=== PATIENT | male | born 1950 ===

== ENCOUNTER 2017-07-08 16:52 | Emergency (ER) | payer MEDICARE ==
[2017-07-08 17:34] VITALS: BMI 25.3
--- NOTE | 2017-07-08 17:34 | ED PDOC ---
Arrival/HPI - General Chief Complaint: ENT Problem Time Seen by Provider: 07/08/17 17:31 Historian: Patient - History of Present Illness Narrative History of Present Illness (Text): 07/08/17 17:31 This 66 yo male presents to this ED c/o nosebleed since yesterday. Patient stated nosebleed started suddenly. Patient was able to control nose bleeding by placing paper towel into right nostril last night. Patient noted nosebleed return prior coming to ED. Patient denies taking blood thinner. Denies other complains. Time/Duration: Other (see hpi) Context: Home Past Medical History - Provider Review Nursing Documentation Reviewed: Yes - Infectious Disease Hx of Infectious Diseases: None - Tetanus Immunization Tetanus Immunization: Unknown - Cardiac Hx Cardiac Disorders: No Hx Hypertension: Yes - Pulmonary Hx Respiratory Disorders: No - Neurological Hx Neurological Disorder: No - HEENT Hx HEENT Disorder: No - Renal Hx Renal Disorder: No - Endocrine/Metabolic Hx Endocrine Disorders: No - Hematological/Oncological Hx Blood Disorders: Yes Hx Cancer: Yes (Rt. Lung??) - Integumentary Hx Dermatological Disorder: No - Musculoskeletal/Rheumatological Hx Musculoskeletal Disorders: No - Gastrointestinal Hx Hemorrhoids: Yes - Genitourinary/Gynecological Hx Genitourinary Disorders: No - Psychiatric Hx Depression: Yes Hx Substance Use: No - Surgical History Hx Orthopedic Surgery: Yes (right leg) Other/Comment: hemorrhoids - Anesthesia Hx Anesthesia: Yes Hx Anesthesia Reactions: No Hx Malignant Hyperthermia: No - Suicidal Assessment Feels Threatened In Home Enviroment: No Family/Social History - Physician Review Nursing Documentation Reviewed: Yes Family/Social History: Other (noncontributory) Smoking Status: Heavy Smoker > 10 Cigarettes Daily Hx Alcohol Use: Yes Amount per day: 6 (12oz [place]-Lite) Hx Substance Use: No Hx Substance Use Treatment: No Allergies/Home Meds Allergies/Adverse Reactions: Allergies No Known Allergies Allergy (Verified 07/08/17 17:24) Home Medications: Home Meds Medication Instructions Recorded Confirmed Albuterol HFA [Ventolin HFA 90 1 puff IH 05/12/16 mcg/actuation (8 g)] Carboplatin 150 mg IV 05/12/16 Lisinopril [Zestril] 10 mg PO 05/12/16 Meclizine [Antivert] 25 mg PO Q6 05/12/16 05/12/16 PEMEtrexed [Alimta] 500 mg IV 05/12/16 Palonosetron [Aloxi] 0.25 mg IV 05/12/16 Pegfilgrastim [Neulasta] 6 mg SC 05/12/16 Tamsulosin [Flomax] 0.4 mg PO DAILY 05/12/16 05/12/16 amLODIPine [Norvasc] 5 mg PO 05/12/16 Review of Systems - Review of Systems Constitutional: Normal. absent: Fatigue, Weight Change, Fevers Eyes: Normal ENT: Epistaxis Respiratory: Normal Cardiovascular: Normal Gastrointestinal: Normal Genitourinary Male: Normal Musculoskeletal: Normal Skin: Normal Neurological: Normal Endocrine: Normal Hemo/Lymphatic: Normal Psychiatric: Normal Physical Exam Vital Signs Temp Pulse Resp BP Pulse Ox 07/08/17 18:59 97.9 F 80 19 141/70 99 Temperature: Afebrile Blood Pressure: Normal Pulse: Regular Respiratory Rate: Normal Appearance: Positive for: Well-Appearing, Non-Toxic, Comfortable Pain Distress: None Mental Status: Positive for: Alert and Oriented X 3 - Systems Exam Head: Present: Atraumatic, Normocephalic Pupils: Present: PERRL Extroacular Muscles: Present: EOMI Ears: Present: Normal, NORMAL TM Mouth: Present: Moist Mucous Membranes Pharnyx: No: ERYTHEMA, EXUDATE, TONSILS ENLARGED Nose (External): Present: Atraumatic Nose (Internal): Present: No Active Bleeding, Other ((+) small blood clot noted right nostril) Neck: Present: Normal Range of Motion Respiratory/Chest: Present: Clear to Auscultation, Good Air Exchange. No: Respiratory Distress, Accessory Muscle Use, Wheezes, Retracting, Rhonchi Cardiovascular: Present: Regular Rate and Rhythm, Normal S1, S2. No: Murmurs Upper Extremity: Present: Normal Inspection, Normal ROM Lower Extremity: Present: Normal Inspection, Normal ROM Neurological: Present: GCS=15, CN II-XII Intact, Speech Normal, Motor Func Grossly Intact, Normal Sensory Function, Normal Cerebellar Funct, Gait Normal Skin: Present: Warm, Dry, Normal Color. No: Rashes Psychiatric: Present: Alert, Oriented x 3, Normal Insight, Normal Concentration Medical Decision Making ED Course and Treatment: 07/08/17 18:15 PROCEDURE: EPISTAXIS MANAGEMENT ~ Performed by the emergency provider Consent: Informed consent was obtained after discussion of the risks, benefits, and alternatives to the procedure. Timeout: A timeout to verify the correct patient, procedure, and site was performed immediately prior to the procedure. Indication: Nasal bleeding control Location: right naris Medication: none Bleeding Source: ANTERIOR Cautery: yes Packing: no Post-procedure: Good hemostasis. The patient was observed following procedure and no repeat episode of bleeding was noted. Patient tolerated the procedure well with no immediate complications. 07/08/17 19:01 Patient stated he feels better. Epistaxis has improved. Patient stated he needs to go home, and he would like to be discharge home soon. He agrees to return to ED id epistaxis returns. I recommended patient to use a humidifier in the house. To apply Vaseline ointment on both nostrils daily. To avoid blowing his nose. Re-evaluation Time: 19:03 Reassessment Condition: Re-examined, Improved - Medication Orders Current Medication Orders: Discontinued Medications Silver Nitrate (Silver Nitrate Topical Stick) 4 swa TOP ONCE ONE Stop: 07/08/17 17:37 Last Admin: 07/08/17 19:00 Dose: 4 swa Comments: Given by Teresa MARCANO. Disposition/Present on Arrival - Present on Arrival Any Indicators Present on Arrival: No History of DVT/PE: No History of Uncontrolled Diabetes: No Urinary Catheter: No History of Decub. Ulcer: No History Surgical Site Infection Following: None - Disposition Have Diagnosis and Disposition been Completed?: Yes Diagnosis: Epistaxis Disposition: HOME/ ROUTINE Disposition Time: 19:03 Patient Plan: Discharge Condition: GOOD Discharge Instructions (ExitCare): Nosebleeds (DC) Additional Instructions: Call doctor of nose in 1-2 days for revaluation. Return to emergency if symptoms reappears. Do not finger clean your nose. Do not blow your nose. Apply Vaseline on each nostrils daily. Use humidifier at home. Referrals: Bettina Marrero MD [Primary Care Provider] - Follow up with primary Tito Dale DO [Staff Provider] - Follow up with primary Forms: yavalu (Danish)
[2017-07-08] MEDS ORDERED: Silver Nitrate Topical - Stick TOP ONE (17:36)
[2017-07-08 19:00] VITALS: BP 141/70; PULSE 80; TEMP 97.9; O2SAT 99
[2017-07-08 19:08] VITALS: RESP 18
== END 2017-07-08 19:08 | disposition home or self-care (01) ==
LOC: ED 16:52
DX: R04.0 Epistaxis (principal)

== ENCOUNTER 2017-07-21 16:54 | Inpatient (IN) | payer MEDICARE, OTHER ==
--- NOTE | 2017-07-21 17:13 | ED PDOC ---
Arrival/HPI - General Chief Complaint: Dizziness/Lightheaded Time Seen by Provider: 07/21/17 16:55 Historian: Patient - History of Present Illness Narrative History of Present Illness (Text): 07/21/17 17:10 66yo male with PMHx of hypertension, depression, BPH, PMHx who present with complaint of "feeling off" with tremors on his hands since this morning. He admits to drinking alcohol daily. States he drank last night and this morning. He denies chest pain, focal weakness, nausea, vomiting, headache, visual changes , any other complaint, States he have never had this symptoms in the past. Past Medical History - Provider Review Nursing Documentation Reviewed: Yes - Infectious Disease Hx of Infectious Diseases: None - Tetanus Immunization Tetanus Immunization: Unknown - Cardiac Hx Cardiac Disorders: No Hx Hypertension: Yes - Pulmonary Hx Respiratory Disorders: No - Neurological Hx Neurological Disorder: No - HEENT Hx HEENT Disorder: No - Renal Hx Renal Disorder: No - Endocrine/Metabolic Hx Endocrine Disorders: No - Hematological/Oncological Hx Blood Disorders: Yes Hx Cancer: Yes (Rt. Lung??) - Integumentary Hx Dermatological Disorder: No - Musculoskeletal/Rheumatological Hx Musculoskeletal Disorders: No - Gastrointestinal Hx Hemorrhoids: Yes - Genitourinary/Gynecological Hx Genitourinary Disorders: No - Psychiatric Hx Depression: Yes Hx Substance Use: No - Surgical History Hx Orthopedic Surgery: Yes (right leg) Other/Comment: hemorrhoids - Anesthesia Hx Anesthesia: Yes Hx Anesthesia Reactions: No Hx Malignant Hyperthermia: No - Suicidal Assessment Feels Threatened In Home Enviroment: No Family/Social History - Physician Review Nursing Documentation Reviewed: Yes Family/Social History: Unknown Family HX Smoking Status: Heavy Smoker > 10 Cigarettes Daily Hx Alcohol Use: Yes Amount per day: 6 (12oz [place]-Lite) Hx Substance Use: No Hx Substance Use Treatment: No Allergies/Home Meds Allergies/Adverse Reactions: Allergies No Known Allergies Allergy (Verified 07/21/17 17:04) Home Medications: Home Meds Medication Instructions Recorded Confirmed Albuterol HFA [Ventolin HFA 90 1 puff IH 05/12/16 mcg/actuation (8 g)] Carboplatin 150 mg IV 05/12/16 Lisinopril [Zestril] 10 mg PO 05/12/16 Meclizine [Antivert] 25 mg PO Q6 05/12/16 05/12/16 PEMEtrexed [Alimta] 500 mg IV 05/12/16 Palonosetron [Aloxi] 0.25 mg IV 05/12/16 Pegfilgrastim [Neulasta] 6 mg SC 05/12/16 Tamsulosin [Flomax] 0.4 mg PO DAILY 05/12/16 05/12/16 amLODIPine [Norvasc] 5 mg PO 05/12/16 Review of Systems - Physician Review All systems were reviewed & negative as marked: Yes - Review of Systems Constitutional: Normal Eyes: Normal ENT: Normal Respiratory: Normal Cardiovascular: Normal Gastrointestinal: Normal Genitourinary Male: Normal Musculoskeletal: Normal Skin: Normal Neurological: Dizziness (Tremors of b/l hands), Other (Tremors of b/l hands) Endocrine: Normal Hemo/Lymphatic: Normal Psychiatric: Normal Physical Exam Vital Signs Reviewed: Yes Vital Signs Temp Pulse Resp BP Pulse Ox 07/21/17 17:10 98.0 F 76 18 138/85 98 Temperature: Afebrile Blood Pressure: Normal Pulse: Regular Respiratory Rate: Normal Appearance: Positive for: Well-Appearing, Non-Toxic, Comfortable, Other ( Tremors of b/l hands) Pain Distress: None Mental Status: Positive for: Alert and Oriented X 3 - Systems Exam Head: Present: Atraumatic, Normocephalic Pupils: Present: PERRL Extroacular Muscles: Present: EOMI Conjunctiva: Present: Normal Mouth: Present: Moist Mucous Membranes Neck: Present: Normal Range of Motion Respiratory/Chest: Present: Clear to Auscultation, Good Air Exchange. No: Respiratory Distress, Accessory Muscle Use Cardiovascular: Present: Regular Rate and Rhythm, Normal S1, S2. No: Murmurs Abdomen: No: Tenderness, Distention, Peritoneal Signs Back: Present: Normal Inspection Upper Extremity: Present: Normal Inspection. No: Cyanosis, Edema Lower Extremity: Present: Normal Inspection. No: Edema Neurological: Present: GCS=15, CN II-XII Intact, Speech Normal, Motor Func Grossly Intact, Normal Sensory Function, Normal Cerebellar Funct, Norm Deep Tendon Reflexes, Gait Normal, Memory Normal, Normal 2Pt Descrimination, Other ( No focal neurological deficit) Skin: Present: Warm, Dry, Normal Color. No: Rashes Psychiatric: Present: Alert, Oriented x 3, Normal Insight, Normal Concentration Medical Decision Making ED Course and Treatment: 07/21/17 17:56 Pt in ED B/L tremors and not feeling well. Labs EKG Head CT Will reassess pt EKG NSR @73bpm 07/21/17 19:46 PT was neurological intact in ED. AAO x3 in ED. Lab was unremarkable CXR ???Apple core lesion on RLL Head CT IMPRESSION: Multiple cystic and hyperdense masses identified in both hemispheres all associated with vasogenic edema highly suspicious for both bland and hemorrhagic metastasis. Additional cystic mass left temporal lobe measuring 2.2 x 2.4 cm also suspicious for neoplasm. These represent new findings compared to the prior study. Case was DW Dr. Hunt, covering Dr. Baldwin. He recommends Decadron 4mg Q6hr , Brain MRI with contrast and elevation of bed head to 30degree. Case was ORIN Mendez and she accepted pt for admission. Request Dr. Cabrera for consult Case was ORIN Cabrera and he recommends Decadron 4mg q6 and Keppra 500mg BID Keppra 500mg, Decadron 10mg was given in ED and bed was elevated to 30degree. - Lab Interpretations Lab Results: 07/21/17 17:26 07/21/17 17:26 Lab Results 07/21/17 17:26: Acetaminophen < 10.0 L 07/21/17 17:26: Alcohol, Quantitative 106 H 07/21/17 17:26: Sodium 139, Potassium 3.9, Chloride 101, Carbon Dioxide 25, Anion Gap 16, BUN 9, Creatinine 1.1, Est GFR ( Amer) > 60, Est GFR (Non- Af Amer) > 60, Random Glucose 99, Calcium 8.5, Phosphorus 3.4, Magnesium 2.0, Total Bilirubin 0.2, AST 44, ALT 22, Alkaline Phosphatase 106, Lactate Dehydrogenase 468, Total Creatine Kinase 55, Troponin I < 0.01, Total Protein 7.0, Albumin 3.8, Globulin 3.3, Albumin/Globulin Ratio 1.1 07/21/17 17:26: PT 10.9, INR 0.96, APTT 29.3 07/21/17 17:26: WBC 6.8 D, RBC 3.19 L, Hgb 10.7 L, Hct 31.4 L, MCV 98.4, MCH 33.5, MCHC 34.1, RDW 12.2, Plt Count 243, MPV 8.0, Gran % 55.3, Lymph % (Auto) 32.7, [place] % (Auto) 7.6 H, Eos % (Auto) 3.7, Baso % (Auto) 0.7, Gran # 3.73, Lymph # (Auto) 2.2, [place] # (Auto) 0.5, Eos # (Auto) 0.3, Baso # (Auto) 0.05 - RAD Interpretation Radiology Orders: 07/21/17 17:07 HEAD W/O CONTRAST [CT] Stat 07/21/17 19:15 CHEST PORTABLE [RAD] Stat - Medication Orders Current Medication Orders: Discontinued Medications Dexamethasone (Decadron Inj) 10 mg IVP STAT STA Stop: 07/21/17 18:57 Levetiracetam (Keppra 500mg Ivpb) 500 mg in 100 mls @ 400 mls/hr IVPB STAT STA Stop: 07/21/17 19:42 Disposition/Present on Arrival - Present on Arrival Any Indicators Present on Arrival: No History of DVT/PE: No History of Uncontrolled Diabetes: No Urinary Catheter: No History of Decub. Ulcer: No History Surgical Site Infection Following: None - Disposition Have Diagnosis and Disposition been Completed?: Yes Diagnosis: Brain neoplasm Disposition: HOSPITALIZED Disposition Time: 19:05 Patient Plan: Admission Patient Problems: Current Active Problems Problem Status Onset Brain neoplasm Acute Condition: FAIR
[2017-07-21 17:16] VITALS: BMI 24.4
[2017-07-21 17:42] LABS: BASO # 0.05 K/mm3 (0.0-2.0); BASO % 0.7 % (0.0-3.0); EOS # 0.3 (0.0-0.7); EOS % 3.7 % (1.5-5.0); GRAN # 3.73 (1.4-6.5); GRAN % 55.3 % (50.0-68.0); HEMOGLOBIN 10.7 g/dL (14.0-18.0); LYMPH # 2.2 (1.2-3.4); LYMPH % 32.7 % (22.0-35.0); MEAN CELL VOLUME 98.4 fl (80.0-105.0); MEAN CORPUSCULAR HEMOGLOBIN 33.5 pg (25.0-35.0); MEAN CORPUSCULAR HGB CONC 34.1 g/dl (31.0-37.0); MONO # 0.5 (0.1-0.6); MONO % 7.6 % (1.0-6.0); RBC 3.19 10^6/uL (3.5-6.1); RED CELL DISTRIBUTION WIDTH 12.2 % (11.5-14.5); WHITE BLOOD COUNT 6.8 10^3/ul (4.5-11.0)
[2017-07-21 17:50] LABS: INR 0.96 (0.93-1.08); PARTIAL THROMBOPLASTIN TIME 29.3 Seconds (25.1-36.5); PROTHROMBIN TIME 10.9 SECONDS (9.4-12.5)
[2017-07-21 17:57] LABS: ALB/GLOB RATIO 1.1 (1.1-1.8); ALBUMIN 3.8 g/dL (3.0-4.8); ALT/SGPT 22 U/L (7-56); AST/SGOT 44 U/L (17-59); BLOOD UREA NITROGEN 9 mg/dL (7-21); CALCIUM 8.5 mg/dL (8.4-10.5); GFR AFRICAN-AMERICAN > 60; GFR NON-AFRICAN AMERICAN > 60
[2017-07-21 18:08] LABS: TROPONIN I < 0.01 ng/mL
--- NOTE | 2017-07-21 18:27 | CT ---
PROCEDURE: CT HEAD WITHOUT CONTRAST. HISTORY: Tremors COMPARISON: 05/12/2016 TECHNIQUE: Axial computed tomography images were obtained through the head/brain without intravenous contrast. Coronal and sagittal reconstructed images. Radiation dose: Total exam DLP = 1006.63 mGy-cm. This CT exam was performed using one or more of the following dose reduction techniques: Automated exposure control, adjustment of the mA and/or kV according to patient size, and/or use of iterative reconstruction technique. FINDINGS: HEMORRHAGE: No intracranial hemorrhage. BRAIN: Cystic mass or cystic a typical encephalomalacia change left temporal lobe. This is a new finding compared to the prior study. This appears anterior and subjacent to the craniotomy defect. Dense mass posterior left parieto-occipital region 7 mm with surrounding vasogenic edema likely hemorrhagic metastasis. Additional hyperdense findings adjacent to the left quadrigeminal plate cistern, left posterior parietal region and right tentorium likely hemorrhagic metastasis. None measure larger than 7 mm. Cystic mass high posterior right parietal region with associated vasogenic edema. The mass measures 2.7 cm. No atrophy or chronic microvascular ischemic changes. VENTRICLES: Hyperdense mass attached to the surface of the right lateral ventricle measuring 5 mm in all likelihood metastatic disease. CALVARIUM: Stable post craniotomy findings. PARANASAL SINUSES: Unremarkable as visualized. No significant inflammatory changes. MASTOID AIR CELLS: Unremarkable as visualized. No inflammatory changes. OTHER FINDINGS: None. IMPRESSION: Multiple cystic and hyperdense masses identified in both hemispheres all associated with vasogenic edema highly suspicious for both bland and hemorrhagic metastasis. Additional cystic mass left temporal lobe measuring 2.2 x 2.4 cm also suspicious for neoplasm. These represent new findings compared to the prior study. Communication of results: This study was completed at 18:02. I conveyed the information to the physician in senior office assistant involved in the care and management of this individual at 18:24
[2017-07-21] MEDS ORDERED: levETIRAcetam 500mg IVPB 500 MG/100 ML BAG IVPB STA (19:28)
[2017-07-21] MEDS ORDERED: Nitroglycerin 2% Ointment Foilpak UD TOP PRN (19:55)
[2017-07-21 19:57] LABS: URINE BILIRUBIN NEGATIVE (NEGATIVE); URINE BLOOD NEGATIVE (NEGATIVE); URINE GLUCOSE (UA) NEGATIVE (NEGATIVE); URINE LEUKOCYTE ESTERASE NEGATIVE Leu/uL (NEGATIVE); URINE PROTEIN NEGATIVE mg/dL (<30 mg/dL); URINE UROBILINOGEN 0.2 E.U./dL (<1 E.U./dL)
[2017-07-21 20:02] LABS: URINE APPEARANCE CLEAR (CLEAR)
[2017-07-21 20:17] LABS: BARBITURATES, UR POSITIVE (NEGATIVE); BENZODIAZEPINES, UR NEGATIVE (NEGATIVE); OPIATES, UR NEGATIVE (NEGATIVE); PHENCYCLIDINE, UR NEGATIVE (NEGATIVE)
[2017-07-21] MEDS: Dexamethasone 4 mg/1 ml IVP SCH (20:31)
--- NOTE | 2017-07-21 21:37 | CARD ---
APPROVED REPORT EKG Measurement Heart [id number] MS 170P-22 [id number] <Conclusion> Normal sinus rhythm with sinus arrhythmia Normal ECG
[2017-07-21] MEDS ORDERED: levETIRAcetam 500 MG in Sodium Chloride 0.9% 100 ML IV SCH (22:00)
[2017-07-22] MEDS: levETIRAcetam 500mg IVPB 500 MG/100 ML BAG IVPB SCH ×3 (00:02→21:13)
[2017-07-22] MEDS: Dexamethasone 4 mg/1 ml IVP SCH ×4 (02:13→21:13)
[2017-07-22 06:37] LABS: HEMOGLOBIN 10.5 g/dL (14.0-18.0); MEAN CELL VOLUME 97.5 fl (80.0-105.0); MEAN CORPUSCULAR HGB CONC 33.9 g/dl (31.0-37.0); MEAN PLATELET VOLUME 8.3 fl (7.0-11.0); RBC 3.18 10^6/uL (3.5-6.1); RED CELL DISTRIBUTION WIDTH 12.2 % (11.5-14.5); WHITE BLOOD COUNT 5.5 10^3/ul (4.5-11.0)
--- NOTE | 2017-07-22 09:04 | CP.PCM.PN ---
Subjective - Date & Time of Evaluation Date of Evaluation: 07/22/17 Time of Evaluation: 09:01 - Subjective Subjective: multiple lesions in brain Had pior craniotomy Told by ER that he had hx of lung CA but not documented anduncertain it is true Needs MRI of brain and should have metastatic workup please contact us when above studies are complete Objective - Vital Signs/Intake and Output Vital Signs (last 24 hours): Temp Pulse Resp BP Pulse Ox 98.8 F 74 18 150/70 96 07/22/17 06:00 07/22/17 06:00 07/22/17 06:00 07/22/17 06:00 07/22/17 06:00 Intake and Output: 07/22/17 07/22/17 06:59 18:59 Intake Total 180 Output Total 650 Balance -470 - Medications Medications: Current Medications Acetaminophen (Tylenol 325mg Tab) 650 mg PO Q6H PRN PRN Reason: Fever >100.4 F Dexamethasone (Decadron Inj) 4 mg IVP Q6H TRI Last Admin: 07/22/17 08:09 Dose: 4 mg Famotidine (Pepcid) 20 mg IVP DAILY TRI Levetiracetam (Keppra 500mg Ivpb) 500 mg in 100 mls @ 200 mls/hr IVPB Q12 TRI Last Admin: 07/22/17 00:02 Dose: Not Given Lorazepam (Ativan) 1 mg IVP Q6H PRN; Protocol PRN Reason: alcohol withdrwal Nitroglycerin (Nitro-Bid 2% Oint) 1 ea TOP Q4H PRN PRN Reason: hypertension Ondansetron HCl (Zofran Inj) 4 mg IVP Q6H PRN PRN Reason: Nausea/Vomiting - Labs Labs: 07/22/17 05:30 PT 10.9 SECONDS (9.4-12.5) 07/21/17 17:26 INR 0.96 (0.93-1.08) 07/21/17 17:26 APTT 29.3 Seconds (25.1-36.5) 07/21/17 17:26
--- NOTE | 2017-07-22 09:12 | RAD ---
HISTORY: admission COMPARISON: 05/12/2016 FINDINGS: LUNGS: The previous study showed a mass at the right lung base. There is a poorly defined density in this location on the current exam. A mass cannot be excluded. There is a small pleural effusion PLEURA: Small effusion CARDIOVASCULAR: Normal. OSSEOUS STRUCTURES: No significant abnormalities. VISUALIZED UPPER ABDOMEN: Normal. OTHER FINDINGS: None. IMPRESSION: The previous study showed a mass at the right lung base. There is a poorly defined density in this location on the current exam. A mass cannot be excluded. There is a small pleural effusion
--- NOTE | 2017-07-22 21:14 | HP ---
DATE OF EXAM: 07/22/2017 HISTORY OF PRESENT ILLNESS: This 66-year-old male was examined at his bedside and this case was reviewed in detail in the presence of his nurse, Yasmin Gonzalez, registered nurse. The case was also reviewed in detail with physician, Dr. Bettina Marrero, manager gallery oncologist. The patient is 66 years old. He presented to the [facility] ER tremulous and weak. He underwent a head CT of the brain that showed multiple lesions, possibly consistent with metastatic cancer. On further discussion with Dr. Marrero, this is probably secondary to his noncompliance with outpatient followup and treatment for diagnosed lung cancer. The patient has comorbid conditions of alcoholism, anxiety neurosis, previously diagnosed lung cancer, anemia of chronic disease and was admitted with an alcohol level of 106 and a positive barbiturates screen. MEDICATIONS: According to this medical record, outpatient medications had included Zyloprim, Desyrel, Protonix, Zestril, Norvasc, Flomax, folic acid, Aleve, Antivert and meloxicam. ALLERGIES: NO KNOWN ALLERGIES TO MEDICATION. SOCIAL HISTORY: He is a smoker, a drinker, but there are no reports of IV drug misuse. FAMILY HISTORY: Noncontributory. REVIEW OF SYSTEMS: He presented with dizziness and tremulousness on head review. Eye review, no reports of change in visual acuity. Ear reports no hearing loss. Throat: No swallowing difficulty. Neck: No stiffness. Cardiac: He has chronic hypertension. Pulmonary: Lung cancer. GI: Peptic ulcer disease with GERD. : No dysuria. Skin: No rash. Vascular: No claudication. Psychological: Acute delirium. Neurological: Multiple metastatic lesions on emergency room CAT scan. Endocrinological: Hyperlipidemia. PHYSICAL EXAMINATION: VITAL SIGNS: The patient is currently in a normal sinus rhythm on cardiac monitored. Temperature 97.7, respirations 20, pulse 97, blood pressure 169/86, pulse ox 96% on room air. HEENT: Head normocephalic, atraumatic. Eyes: No icterus. Ears: Clear. Throat: Noninjected. NECK: Supple. HEART: Regular S1, S2. No pathological rubs, murmurs or gallops. LUNGS: Clear. ABDOMEN: Soft. EXTREMITIES: No edema. SKIN: Without ulcers. VASCULAR: Legs warm to touch. PSYCHOLOGICAL: Could not be assessed due to acute delirium. NEURO: Able to move all 4 extremities, but deconditioned. LABORATORY DATA: Blood culture shows no growth at 24 hours. Alcohol level 106 on admission. Positive barbiturates screen. White count 5500, hemoglobin 10.5, hematocrit 31, platelets 264,000. PT/INR 0.96, PTT 29.3. Sodium 139, K 3.9, chloride 101, bicarb 25, BUN 9, creatinine 1.1, random blood sugar 99, calcium 8.5. Phosphorous 3.4, rayo; magnesium 2, normal. All liver function testing was normal including bilirubin 0.2, AST 44, ALT 22, alk phos 106. CPK normal at 55. Troponin less than 0.01. EKG was reviewed. It showed normal sinus rhythm with nonspecific ST-T wave changes. Head CT was reviewed. It showed multiple cystic and hyperdense masses in both hemispheres. All masses associated with vasogenic edema, suspicious for bland and hemorrhagic metastases. An additional cystic mass was noted in the left temporal lobe. This measured 2 x 2 x 2.4 cm, also suspicious for neoplasm. Chest x-ray was reviewed. There is a poorly defined density at the base of the right lung. Mass cannot be excluded with a small pleural effusion noted as well. This was reviewed with Dr. Will Carias, neurosurgeon, who has requested an MRI of the brain with additional metastatic workup and to be contacted when this is completed. IMPRESSION: A 66-year-old male with history of lung cancers, now with metastasis to the brain, history of chronic alcoholism and noncompliance with followup with Dr. Bettina Marrero, manager gallery oncologist, who states she has not seen the patient several months, but had previously administered chemotherapy to this gentleman, also with history of peptic ulcer disease with gastroesophageal reflux disease, anemia of chronic disease and acute delirium secondary to alcohol toxicity. PLAN: The plan is discussed with the patient, nursing and Dr. Cabrera from Neurology, Dr. Marrero from Hematology/Oncology and Dr. Jesus from Psychiatry will be to obtain respective consultations regarding newly noted brain neoplasm, acute delirium and depression and history of lung cancer. He will be treated with Ativan 2 mg IV every 6 hours p.r.n. agitation. He continues on Decadron 4 mg IV every 6 hours for brain edema. He is receiving Keppra 500 mg IV every 12 for seizure prophylaxis and had an order for Librium 25 mg p.o. every 8 hours p.r.n. alcohol withdrawal syndrome ordered as well. There is an order for nitroglycerin 1 inch to chest wall every 4 hours p.r.n. accelerated hypertension if systolic blood pressure is greater than 160 or diastolic blood pressure is greater than 100. He will receive Pepcid 20 mg IV daily, Tylenol 650 mg by mouth every 6 hours p.r.n. pain or temperature greater than 101 and Zofran 4 mg IV every 6 hours p.r.n. nausea and vomiting. I will re-institute his Zestril and adjusted accordingly for hypertension control. He is awaiting a brain MRI with contrast for further evaluation of brain neoplasm. He is ordered to have a heart-healthy diet, a one-to-one sitter given his agitation syndrome and risk for falls and remains on high-risk fall precautions as well as seizure precautions. Based on his clinical progress, additional testings and diagnostic workups will be entertained. Greater than 75 minutes was spent in the care, management, review of labs, orders, x-rays and outlining of treatment plan for this patient today as well as discussing his case with Neurology, Neurosurgery, Psychiatry and Hematology/Oncology. All questions were answered. Janna Mednez MD [email or web address]
--- NOTE | 2017-07-22 22:23 | CON ---
DATE: 07/22/2017 REASON FOR CONSULT: Known metastatic lung cancer. HISTORY OF PRESENT ILLNESS: The patient is a 66-year-old male with hypertension, depression, BPH, known alcoholic abuse, and known history of metastatic adenocarcinoma of the lung, who presented to the emergency room with complaints of feeling dizziness, tremors and admitting to recent EtOH abuse. He denies any chest pain, focal weakness, nausea, vomiting, headache, visual changes and other complaints. He has not followed up with me as an outpatient in several months as he was refusing treatment. His last chemo treatment was over 6 months ago with Opdivo. PAST MEDICAL HISTORY: As above, known depression, hypertension, BPH. MEDICATIONS: Currently include Ativan, Decadron, Keppra, Librium, Pepcid and Tylenol as well as occasional Zofran and Ativan. ALLERGIES: NO KNOWN DRUG ALLERGIES. SOCIAL HISTORY: Positive for alcohol abuse. No tobacco abuse. No drug abuse. FAMILY HISTORY: Noncontributory. REVIEW OF SYSTEMS: As per the HPI. He also had a CT of the head done in the emergency room, which revealed multiple cystic hypodense masses in both hemispheres with vasogenic edema, suspicious for metastatic disease. PHYSICAL EXAMINATION: VITAL SIGNS: Reveal a temperature of 97.7, pulse of 97, respiratory rate of 20 and a blood pressure 169/86. GENERAL: The patient is awake, alert, but not oriented to time, place or person. He is combative, and he has altered mental status. HEENT: Head normocephalic, atraumatic. Eyes, pupils equal, round, reactive to light and accommodation. Extraocular muscles are intact. There is some pallor. No icterus is noted. NECK: Supple with no adenopathy, no JVD, no thyromegaly. LUNGS: Decreased breath sounds bilaterally with no rales or rhonchi. CARDIOVASCULAR: S1 and S2 are heard. ABDOMEN: Positive bowel sounds. Soft, nontender and nondistended. No organomegaly is palpated. EXTREMITIES: There is no edema, clubbing or cyanosis. LABORATORY DATA: His labs reveal a white count of 5.5, hemoglobin 10.5, hematocrit 31, MCV of 97.5, and a platelet count of 264. Chemistries within normal limits. CT scan of the head is reviewed. ASSESSMENT AND PLAN: Elderly male with known adenocarcinoma of the lung. The patient has not followed up in over 6 months, was on Opdivo last and doing well on it. Now, presents with altered mental status more than his usual baseline with alcohol abuse and noted to have new brain metastasis on CT head, awaiting MRI of the head. We will discuss with Radiation Oncology regarding starting palliative radiation once the patient's ethyl alcohol level has declined. Continue Decadron at this point. Agree with Neurology evaluation. The patient is not a surgical candidate. Thank you for the consult. We will follow up. Bettina Marrero MD
--- NOTE | 2017-07-22 23:40 | CON ---
DATE: HISTORY OF PRESENT ILLNESS: A 66-year-old male, handicapped with a past medical history of hypertension, depression, and benign prostate hypertrophy, came here feeling with tremors of the hands since this morning and has been drinking alcohol and he drank last nigh and this morning. No focal weakness, called to evaluate the patient. PAST MEDICAL HISTORY: As above. ALLERGIES: NO KNOWN DRUG ALLERGY. HOME MEDICATIONS: Zestril, Antivert for dizziness, Flomax and Norvasc for hypertension. REVIEW OF SYSTEMS: A 10-point review of systems was negative except handicapped. PHYSICAL EXAMINATION: NEUROLOGIC: The patient is awake, alert, oriented to self. Cranial nerves II through XII were tested. Pupils reactive. EOM intact. Visual choe full. No facial asymmetry. Tongue midline. Motor: Moves all the extremities spontaneously. Deep tendon reflexes 1+. Both plantars are downgoing. CAT scan of the head shows multicystic hyperdense masses with vasogenic edema and suspicious for hemorrhagic mets, also cystic left temporal lesion measuring 2.2 x 2.4 cm suspicious for a neoplasm. The patient was seen by Dr. Carias, neurosurgeon and ordered the MRI. The patient was given Keppra and Decadron, and workup in progress. We will follow up. Delvin Cabrera MD
[2017-07-23] MEDS: Dexamethasone 4 mg/1 ml IVP SCH ×4 (05:59→21:45)
[2017-07-23] MEDS: levETIRAcetam 500mg IVPB 500 MG/100 ML BAG IVPB SCH ×2 (09:13→21:12)
[2017-07-23] MEDS ORDERED: Iohexol 350 MG/100 ML VIAL ONE (17:40)
--- NOTE | 2017-07-23 19:11 | CT ---
EXAM: CT Head With Intravenous Contrast EXAM DATE/TIME: 07/23/2017 1:54 PM CLINICAL HISTORY: 66 years old, male; Condition or disease; Other: Brain neoplasm TECHNIQUE: Axial computed tomography images of the head/brain with intravenous contrast. All CT scans at this facility use one or more dose reduction techniques, viz.: automated exposure control; ma/kV adjustment per patient size (including targeted exams where dose is matched to indication; i.e. head); or iterative reconstruction technique. Coronal and sagittal reformatted images were created and reviewed. CONTRAST: 95 mL of omnipaque 350 administered intravenously. COMPARISON: CT - HEAD W/O CONTRAST 2017-07-21 18:00 FINDINGS: Brain: There is prominence of sulci gyri and ventricles. There is no midline shift. There are multiple bilateral partially enhancing lesions with associated vasogenic edema. The jackson-white differentiation There are 2 heterogeneously enhancing masses in the posterior fossa. There is a 12 x 60 mm mass posterior to the fourth ventricle. There is a 16 x 20 mm left cerebellar mass. There is mild associated edema. There are multiple bilateral supratentorial enhancing masses with associated edema. Largest mass on the left is in the left temporal lobe 2.6 x 2.3 cm. 8 x 6 mm hemorrhagic focus with edema in the posterior left parietal lobe is unchanged compared to the prior study. Largest lesion on the right is in the posterior parietal lobe and measures 2.5 x 2.3 cm. Ventricles: See above Bones/joints: There is a left craniotomy defect. Soft tissues: unremarkable Sinuses: There is no acute sinusitis. Ears and mastoids: Middle ears and mastoids are unremarkable. Orbits: Orbital contents are unremarkable. IMPRESSION: Multiple supratentorial and posterior fossa masses and small left parietal hemorrhagic mass, findings are consistent with metastatic disease Additional nonemergent findings as described above.
[2017-07-23] MEDS ORDERED: Dextrose 5%/0.45% NS 1,000 ML IV SCH (20:15)
[2017-07-23] MEDS: Potassium Chloride 40 MEQ in Dextrose 5%/0.45% NS 1,000 ML IV SCH (21:46)
--- NOTE | 2017-07-23 23:05 | PN ---
DATE: 07/23/2017 SUBJECTIVE: This 66-year-old male remains hospitalized on the [facility] cardiac unit. This case was reviewed in detail with nurse Audra Cordon, registered nurse. The patient was admitted with delirium and marked deconditioning in the setting of alcohol withdrawal syndrome in the setting of chronic alcoholism. He was noted on CT of the brain to have multiple possible metastatic lesions, which require further evaluation with brain MRI which the patient is unable to sign consent for. Nursing staff have been trying to reach out his family and has not found anyone available to sign consent, and I have requested that they discuss this with Dr. Delvin Cabrera, who perhaps can adjust the testing to a CT of the head with and without IV contrast. At present, he requires a one-to-one sitter because of agitation in the setting of alcohol withdrawal, and is receiving Ativan and Librium as needed. PHYSICAL EXAMINATION: VITAL SIGNS: Shows cardiac cath tech with normal sinus rhythm, temperature 98.2, respirations 19, pulse 80, and blood pressure 173/77. Pulse ox is 96% room air. HEENT: Head normocephalic, atraumatic. Eyes: No icterus. Ears: Clear. Throat: Noninjected. NECK: Supple. HEART: Regular S1 and S2. LUNGS: Clear. ABDOMEN: Soft. EXTREMITIES: No edema. SKIN: Without rash. NEUROLOGICAL: Moves all four extremities. PSYCHOLOGICAL: Confused and delirious. VASCULAR: Legs warm to touch. LABORATORY DATA: Sodium 139, K 3.9, chloride 101, bicarb 25, BUN 9, creatinine 1.1, random blood sugar 99. White count 5500, hemoglobin 10.5, hematocrit 31, platelets 264,000. Alcohol level on admission 106. IMPRESSION: This is a 66-year-old male with alcoholism, alcohol withdrawal syndrome, delirium, agitation, metastatic lesions to his brain on admission CT of the head, history of lung cancer, hypertension. PLAN: Is to continue fall precautions, seizure precautions, one-to-one sitter at bedside, heart healthy diet. Neurology reevaluation for adjustment of testing requests and the patient continues on Zestril 10 mg p.o. daily, Pepcid 20 mg IV daily, nitroglycerin 1 inch to chest wall every 4 hours p.r.n. accelerated hypertension if systolic blood pressure is greater than 160 or diastolic blood pressure is greater than 100, Librium 25 mg p.o. every 8 hours p.r.n. alcohol withdrawal, Keppra 500 mg IV every 12, Haldol 1 mg IM x1 dose was requested, Decadron 4 mg IV every 6, Ativan 2 mg IV every 6 hours p.r.n. severe agitation. I will order IV fluids. Repeat basic metabolic panel and CBC in a.m. Neurology followup as well as Psychiatry followup, and the patient will need oncological and neurosurgical reevaluations pending additional testing results. Greater than 35 minutes was spent in the care management, review of labs, orders and x-rays for this patient today and discussion of his case management with his nurse Audra Cordon. Janna Mendez MD MTDD
[2017-07-24] MEDS: Dexamethasone 4 mg/1 ml IVP SCH ×4 (02:57→21:34)
[2017-07-24 07:37] LABS: MEAN CELL VOLUME 99.4 fl (80.0-105.0); MEAN CORPUSCULAR HEMOGLOBIN 32.2 pg (25.0-35.0); MEAN CORPUSCULAR HGB CONC 32.4 g/dl (31.0-37.0); MEAN PLATELET VOLUME 8.7 fl (7.0-11.0); RBC 3.11 10^6/uL (3.5-6.1); RED CELL DISTRIBUTION WIDTH 12.4 % (11.5-14.5); WHITE BLOOD COUNT 7.6 10^3/ul (4.5-11.0)
[2017-07-24 07:53] LABS: BLOOD UREA NITROGEN 17 mg/dL (7-21); CALCIUM 9.1 mg/dL (8.4-10.5); GFR AFRICAN-AMERICAN > 60; GFR NON-AFRICAN AMERICAN > 60
[2017-07-24] MEDS: Multivitamin Therapeutic Tab PO SCH (08:53)
[2017-07-24] MEDS: Potassium Chloride 40 MEQ in Dextrose 5%/0.45% NS 1,000 ML IV SCH ×3 (08:53→22:37)
[2017-07-24] MEDS: levETIRAcetam 500mg IVPB 500 MG/100 ML BAG IVPB SCH ×2 (09:59→21:34)
[2017-07-25] MEDS: Dexamethasone 4 mg/1 ml IVP SCH ×4 (02:34→21:08)
[2017-07-25] MEDS: Potassium Chloride 40 MEQ in Dextrose 5%/0.45% NS 1,000 ML IV SCH ×4 (05:37→21:44)
[2017-07-25 07:29] LABS: BLOOD UREA NITROGEN 22 mg/dL (7-21); GFR AFRICAN-AMERICAN > 60; GFR NON-AFRICAN AMERICAN > 60
--- NOTE | 2017-07-25 07:56 | PN ---
DATE: 07/24/2017 SUBJECTIVE: This 66-year-old male was examined at his bedside on the cardiac unit. He has one-to-one sitter in place because of agitation and altered mental status, and this case was reviewed with nurse, Audra Cordon, registered nurse. The patient remains weak and deconditioned. He is going to alcohol detox. He was admitted with tremors and an abnormal CT of the head showing metastatic lesions in his brain. Upon further evaluation, it was found that the patient was under treatment with Dr. Marrero from Oncology for lung cancer. According to Dr. Marrero the patient has been noncompliant with followup and at present, remains hospitalized with alcohol intoxication and altered mental status and high risk for falls and seizures. PHYSICAL EXAMINATION: VITAL SIGNS: He remains in a normal sinus rhythm on the cardiac care unit nurse. Temperature 97, respirations 19, pulse 80, blood pressure 127/51, pulse ox 94% on room air. GENERAL: The patient denies fever, chills, chest pain, or shortness of breath. HEENT: Head: Normocephalic, atraumatic. Eyes: No icterus. Ears: Clear. Throat: Noninjected. NECK: Supple. HEART: Regular, S1 and S2. LUNGS: Clear. ABDOMEN: Soft. EXTREMITIES: No edema. SKIN: Without new rash. NEUROLOGIC: He is able to move all four extremities. PSYCHOLOGIC: He is disoriented to person, place, and time. VASCULAR: Legs warm to touch. LABORATORY DATA: White count 7600, hemoglobin 10, hematocrit 30.9, platelets 249,000. PT/INR 0.96, PTT 29.3. Sodium 142, K 4.4, chloride 106, bicarb 29. BUN 17, creatinine 1.1. Random blood sugar 143. All liver function testing was normal including bilirubin 0.2, AST 44, ALT 22, and alk phos 106. CPK was normal at 55 with a troponin less than 0.01. Urinalysis was unremarkable and his admission toxicology screen was positive for alcohol, benzo, and barbiturates. Head CT performed on 07/23/2017, was reviewed. This was done with contrast. It did show multiple supratentorial and posterior fossa masses and a small left parietal hemorrhagic mass consistent with metastatic disease. IMPRESSION: A 66-year-old male with alcoholism, now going through acute alcohol detox with comorbidities of history of lung cancer now with metastases to the brain, metabolic encephalopathy, agitation syndrome, anemia of chronic disease, and marked deconditioning. PLAN: Will be to continue one-to-one sitter for safety precautions as well as Zofran 4 mg IV every 6 hours p.r.n. nausea and vomiting, Zestril 10 mg p.o. daily, thiamine 100 mg p.o. daily, multivitamin one tablet daily, Seroquel 12.5 mg p.o. at bedtime, Seroquel 12.5 mg p.o. b.i.d. p.r.n. agitation, D5 0.45 saline at 100 mL/hour, Pepcid 20 mg IV daily, nitroglycerin ointment 1 inch chest wall every 4 hours p.r.n. accelerated hypertension if systolic blood pressure is greater than 160 or diastolic blood pressure is greater than 100, Librium 25 mg p.o. every 8 hours p.r.n. alcohol delirium, Keppra 500 mg IV every 12 hours, folic acid 1 mg p.o. daily, Decadron 5 mg IV every 6 hours, and Ativan 2 mg IV every 6 hours p.r.n. agitation. The patient is scheduled for a basic metabolic panel in the a.m. He is being followed by Dr. Marrero from Oncology, Dr. Jesus from Psychiatry, and Dr. Delvin Cabrera from Neurology. Once the patient's mental status clears and he does no longer require a one-to-one sitter, additional diagnostic testing and intervention will be discussed for treatment of his metastatic lung cancer to the brain. Overall prognosis remains poor. Greater than 35 minutes was spent in the care management, review of labs, orders, x-rays, and consultations with the patient and Nursing. All questions were answered. Janna Mendez MD MTDTruman
--- NOTE | 2017-07-25 08:05 | CON ---
DATE: 07/24/2017 HISTORY OF PRESENT ILLNESS: The patient is a 66-year-old white male with a history of alcohol use disorder, severe and reported depression, who was admitted to the medical floor after he presented with alcohol withdrawal symptoms. Psychiatry was called due to the patient's altered mental status in the setting of alcohol withdrawal. I reviewed the patient's notes. I attempted to interview the patient at bedside. The patient has been confused and disoriented throughout the course of this hospitalization and he has been restless and trying to get out of his bed and is difficult to redirect. He has required a one-to-one sitter for safety in this respect. The patient's situation is further complicated by the fact that he does not appear to have any extended family members or close family contacts in order to discuss consent for treatment as CT of the brain was noted to have possible metastatic lesions, which required further evaluation by MRI. When I interviewed the patient, he is initially difficult to arouse; however, eventually became more and more alert as questioning continued. The patient initially thought he was in [place] and then indicates correctly that he was at [facility]. The patient believed that it was 09/1950 and this provider also corrected to him on multiple times during the course of my interview that it was 07/2017. The patient does not know why he is hospitalized and he does not want to admit that he is an alcoholic; however, does admit that he drinks one to two times a day and denies any history of withdrawal seizures or psychotic symptoms when in withdrawal. He denies any drug use. He is barely superficially cooperative; however, he is delirious as his focus and orientation are inconsistent during the course of my interview and review of notes indicates that they are inconsistent throughout the day. The patient denies that he is depressed. He denies having suicidal thoughts. He indicates that he wants to live. He denies having hallucinations at this time and does not appear to be actively hallucinating; however, I cannot predict whether that these symptoms will occur. The patient seems relaxed and indicates that he reports and patient denies any major concerns at this time. His insight and judgment are considered to be impaired regarding his current circumstances. PSYCHIATRIC HISTORY: The patient was unable to provide much psychiatric history; however, denies having any suicide attempts or psychiatric medication trials or psychiatric hospitalization. The patient feels that maybe he saw psychiatrist once, but he does not really remember. SOCIAL HISTORY: The patient reports he was born in [facility] himself. The patient indicated that he has been drinking for years one to two drinks a day, denies any drug history. His vital signs and labs were reviewed by this provider. RELEVANT PSYCHIATRIC MEDICATIONS: Include Librium 25 mg p.o. every 8 hours p.r.n. which the patient received one dose yesterday and today 07/22, Ativan 2 mg IV every 6 hours p.r.n. which patient received one dose yesterday and one dose on 07/22. The patient also received Haldol 1 mg IM one dose yesterday in the afternoon. IMPRESSION: Alcohol use disorder, severe; alcoholic delirium; rule out mood and psychotic disorder due to general medical condition as the patient has multiple lesions, possibly metastatic noted on head CT. RECOMMENDATIONS: 1. Would continue alcohol withdrawal treatments as per medical team including vitamin. 2. We will start low-dose Seroquel to help with agitation and sleep at night. After this provider is not familiar with this patient at all as well as help the patient with medical comorbidities. 3. Psychiatry will continue to follow up, specifically Dr. Sharma will follow with the patient on 07/25/2017 regarding capacity to sign for imaging studies that might be beneficial for the patient for refusal. Medical team can assess capacity in this regard and does not in this regard. Lidia Stafford MD
[2017-07-25] MEDS: levETIRAcetam 500mg IVPB 500 MG/100 ML BAG IVPB SCH ×2 (09:34→21:43)
[2017-07-25] MEDS: Multivitamin Therapeutic Tab PO SCH (09:36)
--- NOTE | 2017-07-25 11:58 | CP.PCM.CON ---
History of Present Illness - History of Present Illness History of Present Illness: Mr Haji is a 66 year old male with a history of prostate cancer status post radiation in 2016 and alcoholism who was then subsequently diagnosed with a lung cancer. His last chemotherapy treatment was 6 months ago with Optivo. Most recently, he was admitted to [facility] with dizziness and tremors. A CT of the head on July 21, 2017 revealed multiple cystic and hyperdense masses in both hemispheres with edema. A CT of the head on July 23, 2017 revealed multiple supratentorial and posterior fossa metastases with edema. He was started on decadron. He is on one to one due to confusion Review of Systems - Respiratory Respiratory: Cough, Dyspnea, Dyspnea on Exertion - Neurological Neurological: Dizziness Past Patient History - Infectious Disease Hx of Infectious Diseases: None - Tetanus Immunizations Tetanus Immunization: Unknown - Past Social History Smoking Status: Heavy Smoker > 10 Cigarettes Daily - CARDIAC Hx Hypertension: Yes - PULMONARY Hx Respiratory Disorders: No - NEUROLOGICAL Hx Neurological Disorder: No - HEENT Hx HEENT Problems: No - RENAL Hx Chronic Kidney Disease: No - ENDOCRINE/METABOLIC Hx Endocrine Disorders: No - HEMATOLOGICAL/ONCOLOGICAL Hx Blood Disorders: No - INTEGUMENTARY Hx Dermatological Problems: No - MUSCULOSKELETAL/RHEUMATOLOGICAL Hx Musculoskeletal Disorders: No Hx Falls: No Hx Unsteady Gait: Yes - GASTROINTESTINAL Hx Gastrointestinal Disorders: Yes (hemorrhoids) - GENITOURINARY/GYNECOLOGICAL Hx Genitourinary Disorders: No - PSYCHIATRIC Hx Psychophysiologic Disorder: Yes Hx Depression: Yes Hx Substance Use: No - SURGICAL HISTORY Hx Surgeries: Yes (rt leg) - ANESTHESIA Hx Anesthesia: Yes Hx Anesthesia Reactions: No Hx Malignant Hyperthermia: No Meds Allergies/Adverse Reactions: Allergies Allergy/AdvReac Type Severity Reaction Status Date / Time No Known Allergies Allergy Verified 07/21/17 17:04 - Medications Medications: Current Medications Acetaminophen (Tylenol 325mg Tab) 650 mg PO Q6H PRN PRN Reason: Fever >100.4 F Chlordiazepoxide (Librium) 25 mg PO Q8 PRN; Protocol PRN Reason: Agitation Last Admin: 07/23/17 05:56 Dose: 25 mg Dexamethasone (Decadron Inj) 4 mg IVP Q6H TRI Last Admin: 07/25/17 09:37 Dose: 4 mg Famotidine (Pepcid) 20 mg IVP DAILY [facility] Last Admin: 07/25/17 09:51 Dose: 20 mg Folic Acid (Folic Acid) 1 mg PO DAILY [facility] Last Admin: 07/24/17 10:00 Dose: 1 mg Levetiracetam (Keppra 500mg Ivpb) 500 mg in 100 mls @ 200 mls/hr IVPB Q12 [facility] Last Admin: 07/25/17 09:34 Dose: 200 mls/hr Potassium Chloride 40 meq/ (Dextrose/Sodium Chloride) 1,020 mls @ 100 mls/hr IV .[id number] [facility] Last Admin: 07/25/17 09:37 Dose: 100 mls/hr Lisinopril (Zestril) 10 mg PO DAILY [facility] Last Admin: 07/25/17 09:34 Dose: 10 mg Lorazepam (Ativan) 2 mg IVP Q6H PRN; Protocol PRN Reason: alcohol withdrwal Last Admin: 07/23/17 12:28 Dose: 2 mg Multivitamins (Thera Tab) 1 tab PO 0800 [facility] Last Admin: 07/25/17 09:36 Dose: 1 tab Nitroglycerin (Nitro-Bid 2% Oint) 1 ea TOP Q4H PRN PRN Reason: hypertension Last Admin: 07/23/17 12:01 Dose: 1 ea Ondansetron HCl (Zofran Inj) 4 mg IVP Q6H PRN PRN Reason: Nausea/Vomiting Quetiapine Fumarate (Seroquel) 12.5 mg PO HS [facility] PRN Reason: Protocol Last Admin: 07/24/17 21:35 Dose: 12.5 mg Quetiapine Fumarate (Seroquel) 12.5 mg PO BID PRN; Protocol PRN Reason: Agitation Thiamine HCl (Vitamin B1 Tab) 100 mg PO DAILY [facility] Last Admin: 07/25/17 09:37 Dose: 100 mg Physical Exam - ENT Exam ENT Exam: Mucous Membranes Moist - Respiratory Exam Respiratory Exam: Decreased Breath Sounds - Cardiovascular Exam Cardiovascular Exam: REGULAR RHYTHM - GI/Abdominal Exam GI & Abdominal Exam: Normal Bowel Sounds - Neurological Exam Neurological exam: CN II-XII Intact Results - Vital Signs Recent Vital Signs: Last Vital Signs Temp 97.5 F L 07/25/17 05:50 Pulse 54 L 07/25/17 05:50 Resp 18 07/25/17 05:50 BP 153/79 H 07/25/17 09:34 Pulse Ox 98 07/25/17 05:50 - Labs Result Diagrams: 07/24/17 07:00 07/25/17 06:00 Labs: Laboratory Results - last 24 hr 07/25/17 06:00 Sodium 139 Potassium 4.6 Chloride 103 Carbon Dioxide 29 Anion Gap 12 BUN 22 H Creatinine 1.1 Est GFR ( Amer) > 60 Est GFR (Non-Af Amer) > 60 Random Glucose 148 H Calcium 9.0 Assessment & Plan - Assessment and Plan (Free Text) Assessment: Mr Haji has metastatic lung cancer to the brain. We would concur that he would benefit from whole brain radiation therapy. We spoke to him about the risks and benefits of radiation therapy. He is not the best historian possibly due to his metastases and alcoholism. He is interested in proceeding. We will simulate him today, and begin as soon as possible.
--- NOTE | 2017-07-25 18:11 | PN ---
DATE: 07/25/2017 FOLLOWUP NOTE SUBJECTIVE: In short, the patient is 66-year-old male. Patient was admitted on the medical side for evaluation of tremor on his hands, possible alcohol withdrawal symptoms. The patient was found to have metastasis in his brain. Psych consult was called for evaluation of possible withdrawal symptoms and depressive symptoms. The patient was seen by Dr. Stafford over the weekend. The patient was started on Seroquel for confusion and the patient is on benzodiazepines for possible withdrawal symptoms. The patient was seen today for followup. The patient presented to be alert, was able eat independently. Patient is currently on one-to-one observation for confusion and high risk of falls. The patient seems to be a poor and unreliable historian. The patient knows that he is in the hospital. The patient does not know the circumstances of admission. The patient said probably because I was drunk. This teletypewriter operator is not aware if the patient is aware of his diagnosis of brain metastasis, but based on report from the Hematology/Oncology, they discussed treatment options with him. OBJECTIVE: VITAL SIGNS: The patient vital signs seem to be stable. Temperature 97.4, pulse is 68, blood pressure 150/77, respirations 18, oxygen saturation is 98%. MEDICATIONS: Reviewed. The patient is on Librium 25 mg every 8 hours p.r.n. for agitation and withdrawal symptoms, last dose was on . Decadron, Pepcid, folic acid, Keppra 500 mg twice a day, lisinopril. The patient is on lorazepam 2 mg IV push every 6 hours, last dose was on . Multivitamins, nitroglycerin, Zofran, potassium chloride, Seroquel 12.5 mg twice a day as needed for agitation and 12.5 mg at the nighttime scheduled. The patient is on thiamine as well. LABORATORY DATA: Reviewed. Hemoglobin and hematocrit 10 and 30.9. Coagulation reviewed. Chemistry reviewed. Urinalysis reviewed. Toxicology reviewed. Barbiturate was positive, alcohol 106 at the time of admission. MENTAL STATUS EXAM: The patient appears to be alert, somewhat confused, is not aware of the circumstances of his admission to the medical floor. He said most likely I was drunk. The patient had fair eye contact. The patient was observed eating, he was in good appetite. Speech was underproductive, low volume. Mood described as fine. Affect was constricted. Thought process concrete. Thought content: The patient denied visual, auditory, or tactile hallucinations. Denied paranoid ideation. The patient denied thoughts of harming himself or others. Denied intent or plan. Insight and judgment seem to be limited. Impulses are well controlled. IMPRESSION: Rule out mood disorder due to general medical condition, rule out delirium due to general medical condition, multiple metastases, alcohol withdrawal symptoms, and chronic alcohol consumption, most likely combination of the factors gave the patient current presentation. PLAN: Continue current management. Continue current medication. The patient is on one-to-one observation for high risk of falls and confusion. We will follow up and advise accordingly. Dr. Jesus was called for evaluation and this teletypewriter operator is covering for him today. Thank you very much for letting me participate in the care of your patient. Alicia Sharma MD
--- NOTE | 2017-07-25 23:49 | PN ---
DATE: 07/25/2017 SUBJECTIVE: This is a 66-year-old male remains hospitalized on the cardiac unit with a one-to-one sitter because of agitation, altered mental status and high risk for fall. The patient is being evaluated by Dr. Bravo from Radiation Oncology for newly noted metastatic brain lesion secondary to the lung cancer that will require radiation therapy. At present, the patient remains alert, but confused to person, time and place and has periods of agitation, for which he is ordered to receive p.r.n. Ativan, Librium and is on scheduled Seroquel. He is also being followed by Dr. Jesus from Psychiatry as well as Dr. Marrero from Oncology and Dr. Cabrera from Neurology. PHYSICAL EXAMINATION: GENERAL: He remains in a normal sinus rhythm on the bus driver/monitor. VITAL SIGNS: Temperature 97.5, respirations 18, pulse 68, blood pressure 150/77 with a pulse ox of 98%. HEENT: Head normocephalic, atraumatic. Eyes: No icterus. Ears: Clear. Throat: Noninjected. NECK: Supple. HEART: Regular S1, S2. LUNGS: Clear. ABDOMEN: Soft. EXTREMITIES: No edema. SKIN: Without rash. NEUROLOGICAL: Unchanged. PSYCHOLOGICAL: Confused. VASCULAR: Legs warm to touch. LABORATORY DATA: Microbiology, blood cultures no growth at 72 hours. White count 7600, hemoglobin 10, hematocrit 30.9, platelets 249,000. PT/INR 0.96, PTT 29.3. Sodium 139, K 4.6, chloride 103, bicarb 29, BUN 22, creatinine 1.1, random blood sugar 148 with all liver function testing normal including bilirubin 0.2, AST 44, ALT 22, alkaline phosphatase 106. CPK was normal at 55 with troponin less than 0.01. Urinalysis was unremarkable and the patient was admitted with alcohol level of 106 and positive barbiturates screen. IMPRESSION: A 66-year-old male with metastatic lung cancer to brain, chronic alcoholism, [id number] agitation, metabolic encephalopathy, anemia of chronic disease, chronic hypertension, recent hypokalemia with plan to maintain Ativan 2 mg IV every 6 hours p.r.n. agitation, Decadron 4 mg IV every 6 hours. I have asked the patient's nurse Karli Gamez, registered nurse, to discuss the current dosing of Decadron with Dr. Cabrera from Neurology and ask if any further adjustments on this current dosing need to be made. The patient will be continued on folic acid 1 mg p.o. daily; Keppra 500 mg IV every 12 with seizure precautions intact; Librium 25 mg p.o. every 8 hours p.r.n. alcohol withdrawal; nitroglycerin 1 inch to chest wall every 4 hours p.r.n. accelerated hypertension, if systolic blood pressure greater than 160 or diastolic blood pressure greater than 100; Pepcid 20 mg IV daily; Seroquel 12.5 mg p.o. b.i.d., 12.5 mg p.o. at bedtime; multivitamin 1 tablet daily; thiamine 100 mg p.o. daily; Zestril 10 mg p.o. daily and Zofran 4 mg IV every 6 hours p.r.n. nausea, vomiting. PLAN: The patient will continue on seizure, fall precautions as well as a one-to-one sitter. He continues on a heart-healthy soft bland diet. He is receiving physical therapy for reconditioning and gait training and ultimate plan will be for discharge to disposition to be decided by Social Service, once the patient is medically stabilized. All of the above was discussed in detail with the patient one-to-one sitter and nursing. This case has been reviewed in detail with Neuro, Psychiatry and Oncology. Greater than 35 minutes was spent in the care management, review of labs, orders and x-rays for this patient today. Janna Mendez MD MTDD
[2017-07-26] MEDS: Dexamethasone 4 mg/1 ml IVP SCH ×5 (01:59→23:03)
[2017-07-26] MEDS: Potassium Chloride 40 MEQ in Dextrose 5%/0.45% NS 1,000 ML IV SCH ×2 (06:49→21:00)
[2017-07-26] MEDS: Multivitamin Therapeutic Tab PO SCH (08:05)
[2017-07-26 11:46] LABS: GRAN # 8.31 (1.4-6.5); GRAN % 85.8 % (50.0-68.0); HEMOGLOBIN 11.1 g/dL (14.0-18.0); LYMPH # 0.7 (1.2-3.4); MEAN CELL VOLUME 98.8 fl (80.0-105.0); MEAN CORPUSCULAR HEMOGLOBIN 33.2 pg (25.0-35.0); MEAN CORPUSCULAR HGB CONC 33.6 g/dl (31.0-37.0); MEAN PLATELET VOLUME 8.7 fl (7.0-11.0); MONO # 0.7 (0.1-0.6); MONO % 7.2 % (1.0-6.0); RBC 3.34 10^6/uL (3.5-6.1); RED CELL DISTRIBUTION WIDTH 12.2 % (11.5-14.5); WHITE BLOOD COUNT 9.7 10^3/ul (4.5-11.0)
[2017-07-26 12:00] LABS: ALBUMIN 3.4 g/dL (3.0-4.8); ALT/SGPT 41 U/L (7-56); AST/SGOT 65 U/L (17-59); BLOOD UREA NITROGEN 22 mg/dL (7-21); CALCIUM 9.2 mg/dL (8.4-10.5); GFR AFRICAN-AMERICAN > 60; GFR NON-AFRICAN AMERICAN > 60
[2017-07-26] MEDS: levETIRAcetam 500mg IVPB 500 MG/100 ML BAG IVPB SCH ×2 (15:04→22:28)
--- NOTE | 2017-07-26 16:10 | PN ---
DATE: 07/26/2017 SUBJECTIVE: This 66-year-old male remains on the cardiac unit. He requires a 1:1 sitter because of periods of agitation and confusion placing him at high fall risk. He is a chronic alcoholic and is experiencing alcohol withdrawal. He is being evaluated by Dr. Bravo from Radiation Oncology and will begin radiation treatments for his metastatic lung cancer to his brain. He remains in a normal sinus rhythm on the pvc monitor and this case was reviewed in detail with his nurse, Annette Grayson, registered nurse. PHYSICAL EXAMINATION: VITAL SIGNS: Temperature 97.8, respirations 20, pulse 54, and blood pressure 167/73. Pulse ox 99% room air. equipment monitor phototypesetting, normal sinus rhythm. HEENT: Head: Normocephalic, atraumatic. Eyes: No icterus. Ears: Clear. Throat: Noninjected. NECK: Supple. HEART: S1, S2. LUNGS: Clear. ABDOMEN: Soft. EXTREMITIES: No edema. NEUROLOGIC: Intact. PSYCHOLOGIC: Confused to person, place and time. VASCULAR: Legs warm to touch. SKIN: Without rash. Without breakdown. LABORATORY DATA: White count 9700, hemoglobin 11.1, hematocrit 33, platelets 226,000. Sodium 139, K 4.7, chloride 103, bicarb 26, BUN 22, creatinine 1.1, random blood sugar 145, bilirubin 0.2, AST 67, ALT 41 and alk phos 71. Albumin is normal at 3.4. Urinalysis unremarkable. The patient was admitted with a blood alcohol level of 106. IMPRESSION: This is a 66-year-old male with metastatic lung cancer to brain, chronic alcoholism, now experiencing alcohol withdrawal syndrome and with periods of agitation for which he requires a 1:1 sitter to prevent fall. Also the patient receiving medication for seizure prophylaxis and the patient remains on IV Decadron secondary to metastatic brain lesions with edema noted on CT of head. PLAN: The plan at present as discussed with nursing will be to continue Ativan 2 mg IV every 6 hours p.r.n. agitation, Decadron 4 mg IV every 6 hours with a request that Dr. Cabrera reevaluate this patient for consideration of tapering of IV Decadron as this medically indicated. The patient will continue on folic acid 1 mg p.o. daily, Keppra 500 mg IV every 12 hours, Librium 25 mg p.o. every 8 hours p.r.n. alcohol withdrawal syndrome, nitroglycerin 1 inch to chest wall every 4 hours p.r.n. accelerated hypertension if systolic blood pressure is greater than 160 or diastolic blood pressure is greater than 100, Pepcid 20 mg p.o. daily, Seroquel 12.5 mg p.o. at bedtime, multivitamin 1 tablet daily, thiamine 100 mg p.o. daily, Zestril has been increased to 20 mg p.o. b.i.d. for better blood pressure control and he will receive Zofran 4 mg IV every 6 hours p.r.n. nausea and vomiting. Ultimate plan will be for this patient to attend transitional care rehab when medically stable to complete radiation therapy to his brain metastases with Social Service intervening for family to become involved in the care and management of this patient upon discharge. All of the above was discussed in detail with patient and nursing at bedside. Greater than 35 minutes was spent in the care management, review of labs, orders, x-rays and discussion of plans for this patient with radiation therapy and transitional care rehab. All questions were answered. Janna Mendez MD DAIJA
--- NOTE | 2017-07-26 18:20 | PN ---
DATE: 07/26/2017 NEUROLOGY FOLLOWUP This is a 66-year-old man. CHIEF COMPLAINT: Followup for a cerebral neoplasm. SUBJECTIVE: The patient is on a one-to-one with some mild agitation and he is having some frequent episodes of delirium. Dr. Bravo from Radiation Oncology has newly noted metastatic brain lesion secondary to the lung cancer and required whole brain radiation therapy. The patient is on Librium for his history of alcohol abuse and is on scheduled Seroquel. The patient is on 4 mg of Decadron every 6, which I have now changed it to 2 mg IV every 6, which will be then followed up by tapered dose as an outpatient. He has been placed on Haldol for agitation p.r.n. PAST MEDICAL HISTORY: History of prostate cancer, status post radiation in 2016 and alcoholism, subsequently diagnosed with lung cancer. REVIEW OF SYSTEMS: Fourteen-point review of systems is negative except as per the HPI. ALLERGIES: NO KNOWN DRUG ALLERGIES. MEDICATIONS: Reviewed by nurses' reconciliation sheet. SOCIAL HISTORY: He was a smoker and alcohol abuser. Smoked 10 cigarettes per day. FAMILY HISTORY: Noncontributory. PHYSICAL EXAMINATION: VITAL SIGNS: Temperature 97.5, pulse rate 53, blood pressure 161/71, respiratory rate of 19. GENERAL: The patient is sitting up at the edge of the bed, in no acute distress. HEENT: Atraumatic, normocephalic. PERRLA. Extraocular muscles intact. NECK: Supple. No JVD. No adenopathy noted. LUNGS: Clear to auscultation. No adventitious sounds. HEART: S1, S2. Normal rate and rhythm. No murmurs, rubs or gallops. ABDOMEN: Soft, nontender and nondistended. Bowel sounds are present. EXTREMITIES: No clubbing. No cyanosis. Peripheral pulses 2+ felt bilaterally. NEUROLOGIC: The patient is alert and oriented to person and place, not much to month or year. Recall after 5 minutes is 0/3. Poor attention span and slow thought process. He has no visual hallucinations at this time. Cranial nerves II through XII intact. Motor exam: Moves all extremities equally except for some mild reduced left-sided subtle weakness compared to the right. Sensory exam: Decreased light touch and pinprick up to the calves bilaterally. Decreased vibration of the toes. DTRs are 2+ and 1 at both ankles. Coordination: Fokyqa-to-mzod intact. Gait is deferred for now. LABORATORY DATA: Sodium is 139, potassium 4.7, chloride of 103, carbon dioxide 26, BUN of 22, creatinine 1.1, random glucose of 145. ASSESSMENT AND PLAN: 1. This is a 66-year old man with past medical history of alcoholism, history of prostate cancer, status post radiation in 2016, was subsequently diagnosed with lung cancer and metastasis to the brain, which the CAT scan of the head showed multiple supratentorial and posterior fossa masses and small left parietal hemorrhagic mass. All findings consistent with metastatic disease. Currently, Radiation Oncology is on board and recommended whole brain radiation. He is also having frequent episodes of delirium due to his central issues along with acute on chronic agitation. At this time, I recommend reducing the Decadron to 2 mg IV every 6 and eventually can be adjusted to p.o. regimen and Medrol Dosepak as an outpatient. 2. Continue with Keppra 500 mg IV every 12 hours and once able to take orally, it can be switched to p.o. for seizure prophylaxis given the amounts of vasogenic edema and bilateral cerebral metastatic lesions. 3. Keep his blood pressure between 120s-130s systolic and diastolic 70s-80s. 4. Seroquel 12.5 mg p.o. b.i.d. for agitation and delirium. 5. Continue with thiamine 100 mg p.o. daily in addition to multivitamin as well as IV fluids. At this time, also recommend physical therapy for reconditioning and gait training and possibly will need Transitional Care Unit. At this time, follow up with Psychiatry recommendations as he has prior history of agitation and confusion and delirium. Thank you for this followup. Kieran Cabrera MD
--- NOTE | 2017-07-27 02:27 | CON ---
DATE: 07/26/2017 IDENTIFYING INFORMATION: The patient is a 66-year-old white male, who was initially admitted for tremulousness and possible alcohol withdrawal, but has subsequently been found to have a metastatic brain disorder. I have reviewed the previous evaluations of psychiatrists, Dr. Stafford and Dr. Sharma as well as the patient's chart and I have discussed case with nursing and I have interviewed the patient or at least attempted to. The patient appears to be a poor historian, difficulty in articulating and disorganized in thinking. However, what I am able to establish with some measure of certainty/uncertain is that he is a [place], who at some time went with his family to [facility]. He may have grown up in [facility]. He has 4 brothers who live in [place]. He has an alcohol history. Indicates he has been many times. 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 His of blood work today shows a lowered hemoglobin of 11.1 and hematocrit of 33, although this is elevated from previous days. A toxicology screen showed an elevated blood alcohol level of 106 mg percent on 07/21/2017. His BUN today is elevated at 22 and glucose elevated at 145. His blood pressure has been elevated as has his pulse with his body temperature lowered. He has been maintained on p.r.n. Ativan for possible alcohol withdrawal along with Haldol p.r.n. for agitation and Librium for alcohol withdrawal while also being treated with Keppra for seizures. He has also been maintained on Seroquel to help modulate agitation. The patient was confused earlier this day and had been trying to get out of bed needing to be redirected. We will continue to monitor this unfortunate patient with you. The patient denied a prior psychiatric history. Cosme Jesus MD/ PhD
[2017-07-27] MEDS: Dexamethasone 4 mg/1 ml IVP SCH ×4 (05:28→23:00)
[2017-07-27] MEDS: Multivitamin Therapeutic Tab PO SCH (08:05)
[2017-07-27] MEDS: Potassium Chloride 40 MEQ in Dextrose 5%/0.45% NS 1,000 ML IV SCH ×4 (08:21→21:58)
[2017-07-27] MEDS: levETIRAcetam 500mg IVPB 500 MG/100 ML BAG IVPB SCH ×2 (10:01→21:57)
--- NOTE | 2017-07-27 15:32 | CP.PCM.PN ---
Subjective - Date & Time of Evaluation Date of Evaluation: 07/27/17 Time of Evaluation: 13:00 - Subjective Subjective: The patient is being seen by a one-on-one sitter. Case reviewed with nursing and chart reviewed. The patient appears to be somewhat disheveled is a more comprehensive and more focused than yesterday. He was able to tell me that he is in the hospital. He was able to say that we had met previously but he could not say for what reason or where. He does not appear to be agitated or responding to internal stimuli. He is expressing a wish to go home. The patient is to undergo a course of radiation therapy for his metastatic brain disorder. On the whole his cognitive and psychiatric condition can be said to have improved. Objective - Vital Signs/Intake and Output Vital Signs (last 24 hours): Temp Pulse Resp BP Pulse Ox 98.3 F 53 L 18 140/69 97 07/27/17 11:32 07/27/17 11:32 07/27/17 11:32 07/27/17 11:32 07/27/17 06:00 Intake and Output: 07/27/17 07/27/17 06:59 18:59 Intake Total 1720 Output Total 300 Balance 1420 - Medications Medications: Current Medications Acetaminophen (Tylenol 325mg Tab) 650 mg PO Q6H PRN PRN Reason: Fever >100.4 F Chlordiazepoxide (Librium) 25 mg PO Q8 PRN; Protocol PRN Reason: Agitation Last Admin: 07/26/17 09:33 Dose: 25 mg Dexamethasone (Decadron Inj) 2 mg IVP Q6 [facility] Last Admin: 07/27/17 13:19 Dose: 2 mg Famotidine (Pepcid) 20 mg PO DAILY [facility] Last Admin: 07/27/17 10:00 Dose: 20 mg Folic Acid (Folic Acid) 1 mg PO DAILY [facility] Last Admin: 07/27/17 10:00 Dose: 1 mg Haloperidol (Haldol) 2 mg PO Q4 PRN; Protocol PRN Reason: Agitation Last Admin: 07/26/17 13:12 Dose: 2 mg Levetiracetam (Keppra 500mg Ivpb) 500 mg in 100 mls @ 200 mls/hr IVPB Q12 [facility] Last Admin: 07/27/17 10:01 Dose: 200 mls/hr Potassium Chloride 40 meq/ (Dextrose/Sodium Chloride) 1,020 mls @ 100 mls/hr IV .[id number] [facility] Last Admin: 07/27/17 09:58 Dose: 100 mls/hr Lisinopril (Zestril) 20 mg PO BID [facility] Last Admin: 07/27/17 10:00 Dose: 20 mg Lorazepam (Ativan) 2 mg IVP Q6H PRN; Protocol PRN Reason: alcohol withdrwal Last Admin: 07/26/17 11:19 Dose: 2 mg Multivitamins (Thera Tab) 1 tab PO 0800 [facility] Last Admin: 07/27/17 08:05 Dose: 1 tab Nitroglycerin (Nitro-Bid 2% Oint) 1 ea TOP Q4H PRN PRN Reason: hypertension Last Admin: 07/23/17 12:01 Dose: 1 ea Ondansetron HCl (Zofran Inj) 4 mg IVP Q6H PRN PRN Reason: Nausea/Vomiting Quetiapine Fumarate (Seroquel) 12.5 mg PO HS [facility] PRN Reason: Protocol Last Admin: 07/26/17 23:03 Dose: 12.5 mg Quetiapine Fumarate (Seroquel) 12.5 mg PO BID PRN; Protocol PRN Reason: Agitation Last Admin: 07/26/17 09:42 Dose: 12.5 mg Thiamine HCl (Vitamin B1 Tab) 100 mg PO DAILY [facility] Last Admin: 07/27/17 10:06 Dose: 100 mg - Labs Labs: 07/26/17 11:30 07/26/17 11:30 PT 10.9 SECONDS (9.4-12.5) 07/21/17 17:26 INR 0.96 (0.93-1.08) 07/21/17 17:26 APTT 29.3 Seconds (25.1-36.5) 07/21/17 17:26
[2017-07-28] MEDS: Dexamethasone 4 mg/1 ml IVP SCH ×3 (05:18→18:23)
[2017-07-28] MEDS: Multivitamin Therapeutic Tab PO SCH (08:59)
[2017-07-28] MEDS: levETIRAcetam 500mg IVPB 500 MG/100 ML BAG IVPB SCH ×2 (09:24→21:56)
--- NOTE | 2017-07-28 12:15 | CP.PCM.PN ---
Subjective - Date & Time of Evaluation Date of Evaluation: 07/28/17 Time of Evaluation: 09:00 - Subjective Subjective: DATE: 07/28/2017 NEUROLOGY FOLLOWUP This is a 66-year-old man. CHIEF COMPLAINT: Followup for a cerebral neoplasm. SUBJECTIVE: The patient is on a one-to-one with some mild agitation and he is having some frequent episodes of delirium. Dr. Bravo from Radiation Oncology has newly noted metastatic brain lesion secondary to the lung cancer and required whole brain radiation therapy. The patient is on Librium for his history of alcohol abuse and is on scheduled Seroquel. The patient is on 2 mg IV every 6, which will be then followed up by tapered dose as an outpatient with a medrol dose pack. Psych note reviewed and appreciated. Patient's cognition is slightly better. PAST MEDICAL HISTORY: History of prostate cancer, status post radiation in 2016 and alcoholism, subsequently diagnosed with lung cancer. REVIEW OF SYSTEMS: Fourteen-point review of systems is negative except as per the HPI. ALLERGIES: NO KNOWN DRUG ALLERGIES. MEDICATIONS: Reviewed by nurses' reconciliation sheet. SOCIAL HISTORY: He was a smoker and alcohol abuser. Smoked 10 cigarettes per day. FAMILY HISTORY: Noncontributory. PHYSICAL EXAMINATION: VITAL SIGNS: Reviewed. GENERAL: The patient is sitting up at the edge of the bed, in no acute distress. HEENT: Atraumatic, normocephalic. PERRLA. Extraocular muscles intact. NECK: Supple. No JVD. No adenopathy noted. LUNGS: Clear to auscultation. No adventitious sounds. HEART: S1, S2. Normal rate and rhythm. No murmurs, rubs or gallops. ABDOMEN: Soft, nontender and nondistended. Bowel sounds are present. EXTREMITIES: No clubbing. No cyanosis. Peripheral pulses 2+ felt bilaterally. NEUROLOGIC: The patient is alert and oriented to person and place, not much to month or year. Recall after 5 minutes is 0/3. Poor attention span and slow thought process. He has no visual hallucinations at this time. Cranial nerves II through XII intact. Motor exam: Moves all extremities equally except for some mild reduced left-sided subtle weakness compared to the right. Sensory exam: Decreased light touch and pinprick up to the calves bilaterally. Decreased vibration of the toes. DTRs are 2+ and 1 at both ankles. Coordination: [id number] intact. Gait is deferred for now. LABORATORY DATA: Reviewed. ASSESSMENT AND PLAN: This is a 66-year old man with past medical history of alcoholism, history of prostate cancer, status post radiation in 2016, was subsequently diagnosed with lung cancer and metastasis to the brain, which the CAT scan of the head showed multiple supratentorial and posterior fossa masses and small left parietal hemorrhagic mass. All findings consistent with metastatic disease. Currently, Radiation Oncology is on board and getting whole brain radiation. He is also having frequent episodes of delirium due to his central issues along with acute on chronic agitation with Etoh withdrawal. . 1.At this time, I recommend reducing the Decadron to 2 mg IV every 6 and eventually can be adjusted to p.o. regimen and Medrol Dosepak as an outpatient. 2. Continue with Keppra 500 mg IV every 12 hours and once able to take orally, it can be switched to p.o. for seizure prophylaxis given the amounts of vasogenic edema and bilateral cerebral metastatic lesions. 3. Keep his blood pressure between 120s-130s systolic and diastolic 70s-80s. 4. Seroquel 12.5 mg p.o. b.i.d. for agitation and delirium. 5. Continue with thiamine 100 mg p.o. daily in addition to multivitamin as well as IV fluids. At this time, also recommend physical therapy for reconditioning and gait training and possibly will need Transitional Care Unit. At this time, follow up with Psychiatry recommendations as he has prior history of agitation and confusion and delirium. Thank you for this followup. Kieran Cabrera MD Objective - Vital Signs/Intake and Output Vital Signs (last 24 hours): Temp Pulse Resp BP Pulse Ox 97.3 F L 50 L 20 130/58 L 96 07/28/17 07:38 07/28/17 10:00 07/28/17 07:38 07/28/17 08:59 07/28/17 07:38 Intake and Output: 07/28/17 07/28/17 06:59 18:59 Intake Total 1320 Output Total 200 Balance 1120 - Medications Medications: Current Medications Acetaminophen (Tylenol 325mg Tab) 650 mg PO Q6H PRN PRN Reason: Fever >100.4 F Chlordiazepoxide (Librium) 25 mg PO Q8 PRN; Protocol PRN Reason: Agitation Last Admin: 07/26/17 09:33 Dose: 25 mg Dexamethasone (Decadron Inj) 2 mg IVP Q6 [facility] Last Admin: 07/28/17 11:36 Dose: 2 mg Famotidine (Pepcid) 20 mg PO DAILY [facility] Last Admin: 07/28/17 08:59 Dose: 20 mg Folic Acid (Folic Acid) 1 mg PO DAILY [facility] Last Admin: 07/28/17 09:00 Dose: 1 mg Haloperidol (Haldol) 2 mg PO Q4 PRN; Protocol PRN Reason: Agitation Last Admin: 07/26/17 13:12 Dose: 2 mg Levetiracetam (Keppra 500mg Ivpb) 500 mg in 100 mls @ 200 mls/hr IVPB Q12 [facility] Last Admin: 07/28/17 09:24 Dose: 200 mls/hr Potassium Chloride 40 meq/ (Dextrose/Sodium Chloride) 1,020 mls @ 100 mls/hr IV .[id number] [facility] Last Admin: 07/27/17 21:58 Dose: 100 mls/hr Lisinopril (Zestril) 20 mg PO BID [facility] Last Admin: 07/28/17 08:59 Dose: 20 mg Lorazepam (Ativan) 2 mg IVP Q6H PRN; Protocol PRN Reason: alcohol withdrwal Last Admin: 07/26/17 11:19 Dose: 2 mg Multivitamins (Thera Tab) 1 tab PO 0800 [facility] Last Admin: 07/28/17 08:59 Dose: 1 tab Nitroglycerin (Nitro-Bid 2% Oint) 1 ea TOP Q4H PRN PRN Reason: hypertension Last Admin: 07/23/17 12:01 Dose: 1 ea Ondansetron HCl (Zofran Inj) 4 mg IVP Q6H PRN PRN Reason: Nausea/Vomiting Quetiapine Fumarate (Seroquel) 12.5 mg PO HS [facility] PRN Reason: Protocol Last Admin: 07/27/17 21:56 Dose: 12.5 mg Quetiapine Fumarate (Seroquel) 12.5 mg PO BID PRN; Protocol PRN Reason: Agitation Last Admin: 07/28/17 09:00 Dose: 12.5 mg Thiamine HCl (Vitamin B1 Tab) 100 mg PO DAILY [facility] Last Admin: 07/28/17 09:52 Dose: 100 mg - Labs Labs: 07/26/17 11:30 07/26/17 11:30 PT 10.9 SECONDS (9.4-12.5) 07/21/17 17:26 INR 0.96 (0.93-1.08) 07/21/17 17:26 APTT 29.3 Seconds (25.1-36.5) 07/21/17 17:26
--- NOTE | 2017-07-28 12:24 | PN ---
DATE: 07/28/2017 SUBJECTIVE: This 66-year-old male remains hospitalized, receiving one to one supervision in the setting of delirium secondary to alcohol withdrawal syndrome and metastatic lung cancer to his brain. He is receiving daily brain irradiation to multiple metastatic lesions in his brain and remains on IV Decadron as per Neurology. PHYSICAL EXAMINATION: VITAL SIGNS: Temperature is 97.3, respirations 20, pulse of 56, and blood pressure 130/58 with a pulse ox of 96% on room air. HEENT: Head is normocephalic, atraumatic. Eyes, no icterus. Ears, clear. Throat, noninjected. NECK: Supple. HEART: Regular S1, S2. LUNGS: Clear. ABDOMEN: Soft. EXTREMITIES: No edema. SKIN: Without rash. NEUROLOGICAL: Unchanged. PSYCHOLOGICAL: Alert and confused. VASCULAR: Legs warm to touch. IMPRESSION: This is a 66-year-old male with history of metastatic lung cancer now to his brain with acute alcohol withdrawal syndrome secondary to chronic alcoholism and comorbidities of chronic hypertension, anemia of chronic disease and delirium. PLAN: Continue daily brain irradiation treatment. He continues on Ativan, Decadron, folic acid, Haldol, Keppra, Librium, nitroglycerin ointment to chest wall, Pepcid, potassium replacement, IV fluid of D5 0.45 saline, Seroquel, multivitamin, thiamine and Zestril. He is receiving physical therapy and one-to-one sitter for fall precautions. Social service is attempting to reach out to family regarding power of tie bucker and possible residential placement. Overall prognosis remains poor but stable at present. The patient will be afforded palliative care and comfort measures. Janna Mendez MD
--- NOTE | 2017-07-28 12:43 | PN ---
DATE: 07/27/2017 SUMMARY: This 66-year-old male remains on the cardiac unit, receiving daily radiation to his brain for metastatic lung cancer to his brain newly noted on CT of the brain on this admission. The patient remains weak and deconditioned with periods of agitation and disorientation secondary to alcohol abuse and misuse, alcohol withdrawal and probable dementia component secondary to metastatic lung cancer to his brain. He remains in a normal sinus rhythm on the bosom presser. PHYSICAL EXAMINATION: VITAL SIGNS: Temperature 98.3, respirations 18, pulse 53 and blood pressure 140/69, pulse ox is 97% on room air. HEENT: Head: Normocephalic, atraumatic. Eyes: No icterus. Ears: Clear. Throat: Noninjected. NECK: Supple. HEART: Regular S1, S2. LUNGS: Clear. ABDOMEN: Soft. EXTREMITIES: No edema. SKIN: Without rash. NEUROLOGICAL: He is intact on motor exam. PSYCHOLOGICAL: Disoriented to person, place and time. SKIN: Without rash. LABORATORY DATA: White count 9700, hemoglobin 11.1, hematocrit 33, platelets 226,000. Sodium 139, K 4.7, chloride 103, bicarb 26, BUN 22, creatinine 1.1, random blood sugar 145. Bilirubin 0.2, AST 65, ALT 41, alkaline phosphatase 71. Urinalysis is unremarkable. Admission alcohol level was 106. IMPRESSION AND PLAN: A 66-year-old male with acute delirium in the setting of alcohol abuse and misuse, alcohol withdrawal syndrome, metastatic lung cancer to his brain. The patient requires a one to one sitter because of periods of agitation and risk for falls. He is now undergoing brain radiation treatment for metastatic lung cancer to the brain as a palliative maneuver. The patient will continue to be followed by Dr. Cabrera from Neurology and Dr. Jesus from Psychiatry as well as Dr. Bravo from Radiation Oncology. The patient will require halfway placement given his delirium and inability to care for himself. At present, he will continue on Ativan 2 mg IV every 6 hours p.r.n. agitation. His Decadron has been decreased to 2 mg IV every [address] Kieran Cabrera from Neurology. He will continue on folic acid 1 mg p.o. daily, Haldol 2 mg p.o. every 4 hours p.r.n. severe agitation, Keppra 500 mg IV every 12 hours for seizure prevention, Librium 25 mg p.o. every 8 hours p.r.n. alcohol withdrawal syndrome, nitroglycerin 1 inch to chest wall every 4 hours p.r.n. systolic blood pressure greater than 160 or diastolic blood pressure greater than 100, Pepcid 20 mg p.o. daily, D5 0.45 saline at 100 mL/hour, Seroquel 12.5 mg p.o. b.i.d., Seroquel 12.5 mg p.o. at bedtime, multivitamin 1 tablet daily, thiamine 100 mg p.o. daily and Zestril 20 mg p.o. b.i.d. He continues on a heart-healthy soft bland diet, one to one sitter, for fall precaution and safety precaution. He remains on seizure precautions. He is wearing antiembolism, sequential compression device stockings and is receiving physical therapy for ambulation safety. Overall prognosis remains poor, but stable at present. Janna Mendez MD
--- NOTE | 2017-07-28 13:18 | CP.PCM.CON ---
History of Present Illness - History of Present Illness History of Present Illness: The patient is 66-year-old probably white male with a history of alcohol abuse, possibly recent alcohol induced delirium (with drawer (who was also recently diagnosed as having a metastatic brain tumor (possibly from his prostate). He is undergoing whole brain irradiation that has just been started. He has a one-on-one sitter. He appears to be more lucid than when I had seen him yesterday, more fluid in his conversation. He is aware he is in the hospital. Mildly aware of the date. He spoke of his history of having been in [place], the [place], [place]. He was for a period of time, with the being because his ex- wanted this. She had 3 daughters that he has not had contact with. 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 We maintain patient on present regimen Past Patient History - Infectious Disease Hx of Infectious Diseases: None - Tetanus Immunizations Tetanus Immunization: Unknown - Past Social History Smoking Status: Heavy Smoker > 10 Cigarettes Daily - CARDIAC Hx Hypertension: Yes - PULMONARY Hx Respiratory Disorders: No - NEUROLOGICAL Hx Neurological Disorder: No - HEENT Hx HEENT Problems: No - RENAL Hx Chronic Kidney Disease: No - ENDOCRINE/METABOLIC Hx Endocrine Disorders: No - HEMATOLOGICAL/ONCOLOGICAL Hx Blood Disorders: No - INTEGUMENTARY Hx Dermatological Problems: No - MUSCULOSKELETAL/RHEUMATOLOGICAL Hx Musculoskeletal Disorders: No Hx Falls: No Hx Unsteady Gait: Yes - GASTROINTESTINAL Hx Gastrointestinal Disorders: Yes (hemorrhoids) - GENITOURINARY/GYNECOLOGICAL Hx Genitourinary Disorders: No - PSYCHIATRIC Hx Psychophysiologic Disorder: Yes Hx Depression: Yes Hx Substance Use: No - SURGICAL HISTORY Hx Surgeries: Yes (rt leg) - ANESTHESIA Hx Anesthesia: Yes Hx Anesthesia Reactions: No Hx Malignant Hyperthermia: No Meds Allergies/Adverse Reactions: Allergies Allergy/AdvReac Type Severity Reaction Status Date / Time No Known Allergies Allergy Verified 07/21/17 17:04 - Medications Medications: Current Medications Acetaminophen (Tylenol 325mg Tab) 650 mg PO Q6H PRN PRN Reason: Fever >100.4 F Chlordiazepoxide (Librium) 25 mg PO Q8 PRN; Protocol PRN Reason: Agitation Last Admin: 07/26/17 09:33 Dose: 25 mg Dexamethasone (Decadron Inj) 2 mg IVP Q6 [facility] Last Admin: 07/28/17 11:36 Dose: 2 mg Famotidine (Pepcid) 20 mg PO DAILY [facility] Last Admin: 07/28/17 08:59 Dose: 20 mg Folic Acid (Folic Acid) 1 mg PO DAILY [facility] Last Admin: 07/28/17 09:00 Dose: 1 mg Haloperidol (Haldol) 2 mg PO Q4 PRN; Protocol PRN Reason: Agitation Last Admin: 07/26/17 13:12 Dose: 2 mg Levetiracetam (Keppra 500mg Ivpb) 500 mg in 100 mls @ 200 mls/hr IVPB Q12 [facility] Last Admin: 07/28/17 09:24 Dose: 200 mls/hr Potassium Chloride 40 meq/ (Dextrose/Sodium Chloride) 1,020 mls @ 100 mls/hr IV .[id number] [facility] Last Admin: 07/27/17 21:58 Dose: 100 mls/hr Lisinopril (Zestril) 20 mg PO BID [facility] Last Admin: 07/28/17 08:59 Dose: 20 mg Lorazepam (Ativan) 2 mg IVP Q6H PRN; Protocol PRN Reason: alcohol withdrwal Last Admin: 07/26/17 11:19 Dose: 2 mg Multivitamins (Thera Tab) 1 tab PO 0800 [facility] Last Admin: 07/28/17 08:59 Dose: 1 tab Nitroglycerin (Nitro-Bid 2% Oint) 1 ea TOP Q4H PRN PRN Reason: hypertension Last Admin: 07/23/17 12:01 Dose: 1 ea Ondansetron HCl (Zofran Inj) 4 mg IVP Q6H PRN PRN Reason: Nausea/Vomiting Quetiapine Fumarate (Seroquel) 12.5 mg PO HS [facility] PRN Reason: Protocol Last Admin: 07/27/17 21:56 Dose: 12.5 mg Quetiapine Fumarate (Seroquel) 12.5 mg PO BID PRN; Protocol PRN Reason: Agitation Last Admin: 07/28/17 09:00 Dose: 12.5 mg Thiamine HCl (Vitamin B1 Tab) 100 mg PO DAILY [facility] Last Admin: 07/28/17 09:52 Dose: 100 mg Results - Vital Signs Recent Vital Signs: Last Vital Signs Temp 97.3 F L 07/28/17 07:38 Pulse 50 L 07/28/17 10:00 Resp 20 07/28/17 07:38 BP 130/58 L 07/28/17 08:59 Pulse Ox 96 07/28/17 07:38 - Labs Result Diagrams: 07/26/17 11:30 07/26/17 11:30
[2017-07-29] MEDS: Dexamethasone 4 mg/1 ml IVP SCH ×4 (00:52→17:49)
[2017-07-29] MEDS: Potassium Chloride 40 MEQ in Dextrose 5%/0.45% NS 1,000 ML IV SCH ×2 (01:22→20:23)
[2017-07-29] MEDS: Multivitamin Therapeutic Tab PO SCH (09:29)
[2017-07-29] MEDS: levETIRAcetam 500mg IVPB 500 MG/100 ML BAG IVPB SCH ×2 (09:30→21:15)
--- NOTE | 2017-07-29 13:52 | CP.PCM.PN ---
Subjective - Date & Time of Evaluation Date of Evaluation: 07/29/17 Time of Evaluation: 13:00 - Subjective Subjective: Seen at bedside with a and case discussed with nursing The patient is becoming more combative although not today. He required a when necessary of Haldol. I have presently increase his standing dose of Haldol to 2.5 mg twice a day. While the patient is conversant. He has confused the period he is aware he is in the hospital. He cannot tell me why he is in the hospital. He is confused with regard to date or who I am except that he is aware that I am a doctor. We'll continue to monitor and to adjust medication as needed while this patient with metastatic brain cancer undergoes whole brain irradiation. Objective - Vital Signs/Intake and Output Vital Signs (last 24 hours): Temp Pulse Resp BP Pulse Ox 97.4 F L 71 18 127/70 97 07/28/17 22:12 07/29/17 07:47 07/29/17 07:47 07/29/17 07:47 07/29/17 10:00 Intake and Output: 07/29/17 07/29/17 06:59 18:59 Intake Total 240 Output Total 400 Balance -160 - Medications Medications: Current Medications Acetaminophen (Tylenol 325mg Tab) 650 mg PO Q6H PRN PRN Reason: Fever >100.4 F Chlordiazepoxide (Librium) 25 mg PO Q8 PRN; Protocol PRN Reason: Agitation Last Admin: 07/28/17 16:22 Dose: 25 mg Dexamethasone (Decadron Inj) 2 mg IVP Q6 [facility] Last Admin: 07/29/17 12:25 Dose: 2 mg Famotidine (Pepcid) 20 mg PO DAILY [facility] Last Admin: 07/29/17 09:30 Dose: 20 mg Folic Acid (Folic Acid) 1 mg PO DAILY [facility] Last Admin: 07/29/17 09:30 Dose: 1 mg Haloperidol (Haldol) 2.5 mg PO BID [facility] PRN Reason: Protocol Haloperidol Lactate (Haldol) 5 mg IM Q4H PRN; Protocol PRN Reason: Agitation Levetiracetam (Keppra 500mg Ivpb) 500 mg in 100 mls @ 200 mls/hr IVPB Q12 [facility] Last Admin: 07/29/17 09:30 Dose: 200 mls/hr Potassium Chloride 40 meq/ (Dextrose/Sodium Chloride) 1,020 mls @ 100 mls/hr IV .[id number] [facility] Last Admin: 07/29/17 01:22 Dose: 100 mls/hr Lisinopril (Zestril) 20 mg PO BID [facility] Last Admin: 07/28/17 18:24 Dose: 20 mg Lorazepam (Ativan) 2 mg IVP Q6H PRN; Protocol PRN Reason: alcohol withdrwal Last Admin: 07/29/17 12:27 Dose: 2 mg Multivitamins (Thera Tab) 1 tab PO 0800 [facility] Last Admin: 07/29/17 09:29 Dose: 1 tab Nicotine (Nicoderm Cq) 1 patch TD DAILY [facility] Nitroglycerin (Nitro-Bid 2% Oint) 1 ea TOP Q4H PRN PRN Reason: hypertension Last Admin: 07/23/17 12:01 Dose: 1 ea Ondansetron HCl (Zofran Inj) 4 mg IVP Q6H PRN PRN Reason: Nausea/Vomiting Quetiapine Fumarate (Seroquel) 12.5 mg PO HS [facility] PRN Reason: Protocol Last Admin: 07/28/17 21:57 Dose: 12.5 mg Quetiapine Fumarate (Seroquel) 12.5 mg PO BID PRN; Protocol PRN Reason: Agitation Last Admin: 07/28/17 18:24 Dose: 12.5 mg Thiamine HCl (Vitamin B1 Tab) 100 mg PO DAILY [facility] Last Admin: 07/29/17 09:29 Dose: 100 mg - Labs Labs: 07/26/17 11:30 07/26/17 11:30 PT 10.9 SECONDS (9.4-12.5) 07/21/17 17:26 INR 0.96 (0.93-1.08) 07/21/17 17:26 APTT 29.3 Seconds (25.1-36.5) 07/21/17 17:26
--- NOTE | 2017-07-29 21:24 | PN ---
DATE: 07/29/2017 SUBJECTIVE: This 66-year-old male was examined on the cardiac olivera in the presence of his one-to-one sitter and nurse.. The case was discussed in detail with the social worker masters, Lamine Contreras. 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 He is becoming more conversant, but remains in danger of falling and requires a one-to-one sitter for safety. He is starting to eat better and is tolerating brain radiation treatments for his metastatic lung cancer to the brain. Social Service reports that the patient's neice, Rosemary, stated that the patient's brother, Roberto, will be coming to [place] over the long weekend to meet with Social Service on Tuesday to discuss disposition. The patient remains in a normal sinus rhythm on the gambling monitor. PHYSICAL EXAMINATION: VITAL SIGNS: Temperature 97.3, respirations 20, pulse 56, blood pressure 130/58 with pulse ox 96% on room air. HEENT: Head normocephalic, atraumatic. Eyes: No icterus. Ears: Clear. Throat: Noninjected. NECK: Supple. HEART: Regular S1, S2. LUNGS: Clear. ABDOMEN: Soft. EXTREMITIES: No edema. SKIN: Without rash. NEUROLOGICAL: Intact. PSYCHOLOGICAL: Alert, but confused. VASCULAR: Legs warm to touch. LABORATORY DATA: White count 9700, hemoglobin 11.1, hematocrit 33, platelets 226,000. Sodium 139, K 4.7, chloride 103, bicarb 26, BUN 22, creatinine 1.1, random blood sugar 145. Magnesium 1.7. Bilirubin 0.2, AST 65, ALT 41, alk phos 71. The patient was seen by Dr. Jesus from Psychiatry because of acute delirium in the setting of metastatic brain cancer and chronic alcoholism as well as periods of agitation requiring intermittent Haldol, p.r.n. Librium and p.r.n. Ativan. IMPRESSION: A 66-year-old male with metastatic lung cancer to brain, delirium, metabolic encephalopathy, anemia of chronic disease, intermittent hyperglycemia, chronic hypertension, alcohol abuse and misuse. PLAN: As discussed with the patient, Social Service, Psychiatry, nursing and one-to-one sitter at bedside will be to continue Ativan 2 mg IV every 6 hours p.r.n. agitation, Decadron has been reduced to 2 mg IV every 6, folic acid 1 mg p.o. daily, Haldol 2.5 mg p.o. b.i.d., Haldol 5 mg IM every 4 hours p.r.n. agitation, Keppra 500 mg IV every 12, Librium 25 mg p.o. every 8 p.r.n. alcohol withdrawal syndrome, Nicoderm 14 mg patch to arm daily, nitroglycerin 1 inch to chest wall every 4 hours p.r.n. accelerated hypertension if systolic blood pressure greater than 160 or diastolic blood pressure greater than 100, Pepcid 20 mg p.o. daily for GI prophylaxis, Seroquel 12.5 mg p.o. at bedtime, Seroquel 12.5 mg p.o. b.i.d., multivitamin 1 tablet daily, thiamine 100 mg p.o. daily and Zestril 20 mg p.o. b.i.d. with Zofran 4 mg IV every 6 hours p.r.n. nausea and vomiting. The patient will have his one to one sitter renewed for safety against falls. He will remain on high risk fall protocol. Seizure precautions and is wearing antiembolism sequential compression device stockings. He continues on physical therapy for reconditioning and gait training and ultimate decisions will be made regarding code status, placement and power of patent prosecution attorney once his brother arrives to discuss this with the patient at bedside and Social Service. Greater than 35 minutes was spent in the care and management, review of labs, orders, x-rays, discussion with social service, case management, nursing, patient and one-to-one sitter. All questions were answered. Janna Mendez MD MTDD
[2017-07-30] MEDS: Dexamethasone 4 mg/1 ml IVP SCH ×5 (00:10→23:44)
[2017-07-30 06:22] LABS: HEMOGLOBIN 10.8 g/dL (14.0-18.0); MEAN CELL VOLUME 97.9 fl (80.0-105.0); MEAN CORPUSCULAR HEMOGLOBIN 32.6 pg (25.0-35.0); MEAN CORPUSCULAR HGB CONC 33.3 g/dl (31.0-37.0); MEAN PLATELET VOLUME 9.3 fl (7.0-11.0); RBC 3.31 10^6/uL (3.5-6.1); RED CELL DISTRIBUTION WIDTH 12.7 % (11.5-14.5)
[2017-07-30 07:12] LABS: BLOOD UREA NITROGEN 42 mg/dL (7-21); CALCIUM 9.1 mg/dL (8.4-10.5); GFR AFRICAN-AMERICAN > 60; GFR NON-AFRICAN AMERICAN 55
[2017-07-30] MEDS: Multivitamin Therapeutic Tab PO SCH (09:20)
[2017-07-30] MEDS: levETIRAcetam 500mg IVPB 500 MG/100 ML BAG IVPB SCH ×2 (09:38→22:41)
[2017-07-30] MEDS ORDERED: Dextrose 5%/0.45% NS 1,000 ML IV SCH (10:30)
[2017-07-30] MEDS ORDERED: Potassium Chloride 40 MEQ in Dextrose 5%/0.45% NS 1,000 ML IV SCH (19:27)
--- NOTE | 2017-07-30 21:41 | PN ---
DATE: 07/30/2017 SUBJECTIVE: This 66-year-old male was examined at his bedside in the presence of his 1:1 sitter and the case was reviewed in detail with his nurse, Ginger Sorenson, registered nurse. The patient remains alert, but confused to person, place and time. He has chronic delirium and dementia secondary to chronic alcoholism and at present, he is awaiting the arrival of his brother from [place] to assist social service with his disposition. He is tolerating brain radiation for metastatic lung cancer to his brain. PHYSICAL EXAMINATION: VITAL SIGNS: Temperature is 97.6, respirations 18, pulse 57, blood pressure 139/76 with a pulse ox of 95%. HEENT: Head is normocephalic, atraumatic. Eyes: No icterus. Ears: Clear. Throat: Noninjected. NECK: Supple. HEART: Regular S1, S2. LUNGS: Clear. ABDOMEN: Soft. EXTREMITIES: No edema. SKIN: Without rash. NEUROLOGICAL: Unchanged. PSYCHOLOGICAL: Disoriented x3. VASCULAR: Legs warm to touch. It should be noted that the patient does indeed have periods of agitation and remained at risk of fall due to his confusional state. LABORATORY DATA: White count is 9000, hemoglobin 10.8, hematocrit 32.4, platelets 254,000. Sodium 139, K 5.3, chloride 107, bicarb 24, BUN 42, creatinine 1.3, random blood sugar 116. Urinalysis is unremarkable. IMPRESSION: Acute delirium and chronic dementia in a gentleman with chronic alcoholism, now going through alcohol withdrawal syndrome with metastatic lung cancer to the brain and comorbidities of anemia of chronic disease and agitation syndrome. PLAN: The plan as discussed with the patient and nursing will be to continue Ativan, IV Decadron, folic acid, Haldol, Keppra, Nicoderm smoking patch, Pepcid, D5 0.45 saline IV, Seroquel, multivitamin, thiamine, Zestril and Zofran. Given his better nutritional status and elevated potassium level, his supplemental potassium will be discontinued, which is currently in his IV fluids. The patient will await Social Service regarding disposition and overall prognosis remains poor, but stable at present. Janna Mendez MD [facility]TD[facility]
[2017-07-31] MEDS: Dexamethasone 4 mg/1 ml IVP SCH ×3 (06:27→17:32)
[2017-07-31] MEDS: levETIRAcetam 500mg IVPB 500 MG/100 ML BAG IVPB SCH ×2 (10:02→21:20)
[2017-07-31] MEDS: Multivitamin Therapeutic Tab PO SCH (10:05)
--- NOTE | 2017-07-31 19:30 | PN ---
DATE: 07/31/2017 SUBJECTIVE: This 66-year-old male remains hospitalized with multiple medical problems including acute delirium, chronic dementia in the setting of alcoholism, alcohol abuse and misuse, smoking abuse and misuse, and metastatic lung cancer to his brain for which patient is undergoing brain irradiation therapy. The patient continues with a 1:1 sitter because of high risk of falls. PHYSICAL EXAMINATION: VITAL SIGNS: He is in sinus rhythm with a temperature of 97.3, respirations 18, pulse 70, blood pressure 144/106. Pulse ox 96%. HEENT: Head: Normocephalic, atraumatic. Eyes: No icterus. Ears: Clear. Throat: Noninjected. NECK: Supple. HEART: Regular S1, S2. LUNGS: Clear. ABDOMEN: Soft. EXTREMITIES: No edema. SKIN: Without rash. NEUROLOGICAL: Unchanged. PSYCHOLOGICAL: Confused to person, place, and time. VASCULAR: Legs warm to touch. LABORATORY DATA: Repeat potassium 5.1, white count 9000, hemoglobin 10.8, hematocrit 32.4, platelets 254,000. IMPRESSION: A 66-year-old male with metastatic lung cancer to his brain for which he is receiving brain irradiation therapy with comorbidities of chronic alcoholism, acute delirium, chronic dementia, anemia of chronic disease, history of alcohol and smoking abuse, degenerative arthritis and chronic hypertension. PLAN: The plan is to continue his 1:1 sitter while administering p.r.n. Ativan, tapering doses of IV Decadron, D5W at 70 mL/hour with no added potassium, folic acid, Haldol, Keppra, Nicoderm smoking patch, nitroglycerin ointment p.r.n. accelerated hypertension, Pepcid, Seroquel, multivitamin, thiamine, and Zestril. The plan is for social service to discuss disposition with the patient's next of kin, his brother Roberto Haji, and patient's overall prognosis though poor remains stable at present. Janna Mendez MD [facility]
[2017-08-01] MEDS: Dexamethasone 4 mg/1 ml IVP SCH ×5 (00:28→23:26)
[2017-08-01 07:10] LABS: BLOOD UREA NITROGEN 37 mg/dL (7-21); CALCIUM 9.5 mg/dL (8.4-10.5); GFR AFRICAN-AMERICAN > 60; GFR NON-AFRICAN AMERICAN > 60
[2017-08-01] MEDS: Multivitamin Therapeutic Tab PO SCH (08:27)
[2017-08-01] MEDS: levETIRAcetam 500mg IVPB 500 MG/100 ML BAG IVPB SCH ×2 (10:08→21:12)
--- NOTE | 2017-08-01 19:58 | PN ---
DATE: 08/01/2017 SUBJECTIVE: This 66-year-old male remains hospitalized, receiving medical therapy for newly noted metastatic lung cancer to his brain requiring brain irradiation, IV Decadron and a one-to-one sitter because of periods of agitation and the patient remains at increased risk of falls. He is also being treated for acute delirium, chronic dementia, alcohol abuse and misuse, smoking abuse and misuse, chronic alcoholism and chronic hypertension, anemia of chronic disease and deconditioning. PHYSICAL EXAMINATION: VITAL SIGNS: At present, his temperature is 98.4, respirations 18, pulse 60 and blood pressure 132/51 with a pulse ox of 99%. HEENT: Head: Normocephalic, atraumatic. Eyes: No icterus. Ears: Clear. Throat: Noninjected. NECK: Supple. HEART: Regular S1, S2. LUNGS: Clear. ABDOMEN: Soft. EXTREMITIES: No edema. SKIN: Without rash. NEUROLOGICAL: Intact. PSYCHOLOGICAL: Confused x3. VASCULAR: Legs warm to touch. LABORATORY DATA: White count 9000, hemoglobin 10.8, hematocrit 32.4, platelets 254,000. Sodium 139, K 4.6, chloride 103, bicarb 25, BUN 37, creatinine 1.2, random blood sugar 126. Blood culture show no growth. IMPRESSION: A 66-year-old male with metastatic lung cancer to the brain requiring brain irradiation and IV Decadron with comorbidities of chronic hypertension, anemia of chronic disease, chronic alcoholism, acute delirium, chronic dementia, chronic smoking abuse, peptic ulcer disease with gastroesophageal reflux disease and deconditioning. PLAN: To continue IV Ativan p.r.n. agitation, Decadron 2 mg IV every 6 hours to reduce brain swelling, D5W at 70 mL/hour, folic acid 1 mg daily, Haldol 5 mg IM every 4 hours p.r.n. severe agitation, Keppra 500 mg IV every 12 hours, Nicoderm smoking patch 14 mg daily, Pepcid 20 mg p.o. daily, Seroquel 12.5 mg p.o. b.i.d. and 25 mg p.o. at bedtime, multivitamin 1 tablet daily, thiamine 100 mg p.o. daily, Zestril 20 mg p.o. b.i.d. The patient continues with a one-to-one sitter for fall precaution. He also continues on a heart-healthy soft bland diet. He remains on seizure precautions. He is wearing sequential compression device, antiembolism stockings and receiving physical therapy for reconditioning and gait training while awaiting social service to arrange disposition plans with the patient and family. Prognosis remains stable at present. Janna Mendez MD [facility]
[2017-08-02] MEDS: Dexamethasone 4 mg/1 ml IVP SCH ×3 (05:31→17:50)
[2017-08-02] MEDS: Multivitamin Therapeutic Tab PO SCH (08:40)
--- NOTE | 2017-08-02 08:45 | CON ---
DATE: 07/30/2017 HISTORY OF PRESENT ILLNESS: The patient is a 66-year-old white male, being followed by Psychiatry for altered mental status, likely secondary to delirium. The patient initially was seen by this provider on 07/24/2017 for initial consultation and has been followed up by Dr. Jesus on the unit this week. Dr. Jesus requested a followup of patient as the patient continues to be confused, disoriented and combative on the unit. I reviewed the patient's recent medications and he is on a variety of medications including Haldol, Librium, Ativan and Seroquel. I met with him at bedside and he does not remember me from our initial interview last week; however, he does appear to be a lot more agitated and irritable and impulsive. He indicates that he is "mentally okay," however, he is very angry about his treatment on the medical floor. He is hungry and wants to eat and no one has been informing him about what is going on. He indicates that he usually gets irritable because he is hungry and would like to have more food on the unit. He is not oriented. He knows he is at [facility]; however, despite multiple guesses he cannot determine the correct month or year. He does not know why he is hospitalized and he seems better about his lack of knowledge in this respect as he blames medical team could not informing him; although, the patient is quite forgetful and is quite possible that he has been informed multiple times and has forgotten. I reviewed the reason for his hospitalization. I tried to reorient him to month and year and I apologized him about his discomforts and complaints. He calms down a little bit, enough to discuss any current psychiatric issues and in generally, the patient denies having any depression, suicidal thoughts or hallucinations. The patient does not appears to be totally psychotic or paranoid. He just appears enraged and disoriented and consistent with diagnosis of delirium. His insight and judgment are still considered to be impaired. Impulse control is poor. Labs and vitals were reviewed by this provider. RELEVANT PSYCHIATRIC MEDICATIONS: Librium 25 mg p.o. every 8 hours p.r.n., the patient did not receive any dosage yesterday and only received one dose the day prior; Haldol 2.5 mg p.o. b.i.d., the patient received one dose last night and one dose morning; Haldol 5 mg IM every 4 hours p.r.n., which the patient did not receive any dosage yesterday; Seroquel 12.5 mg p.o. b.i.d. p.r.n., the patient received two doses on 07/28/2017 and as well as Seroquel 12.5 mg p.o. at bedtime scheduled. IMPRESSION: The patient continues to be delirious that is likely to his multiple medical issues, some of which are very serious. Please refer to medical notes for full details. RECOMMENDATIONS: At this time, I need to clean up the patient's psychiatric medications. I will discontinue Librium, it has been over a week and the patient is probably not withdrawing from alcohol any longer and the patient has not really required this medication in over 24 hours. Medications like Librium can also lead to disinhibition. I will also decrease Ativan to 1 mg IV every 12 hours p.r.n. The patient does not require this medication and such a high dose can also lead to disinhibition and worsening behaviors. Standing Haldol will be discontinued in favor of Seroquel and Seroquel will be increased to 25 mg b.i.d. standing as well as 50 mg at bedtime. Psychiatry will continue to follow up with the patient. Specifically, next follow up will be on Tuesday to determine the patient's behavior after 24 hours with the implementation of these medication changes. Dr. Stafford will be following up with the patient on on Tuesday. Lidia Stafford MD
--- NOTE | 2017-08-02 09:15 | CON ---
DATE: 08/01/2017 HISTORY OF PRESENT ILLNESS: The patient is a 66-year-old white male who Psychiatry is following for altered mental status likely secondary to delirium, associated with combative behavior. I had met with the patient on multiple occasions and I also reviewed Dr. Jesus's note. Considering my last visit with the patient approximately 2 days ago, we discontinued in favor of Seroquel 12.5 b.i.d. and 25 at bedtime, and decreased his and there has been some improvement in his behavior, although it is not clear whether it is due to medications changes or attaining improvement due to improving delirium. He is less combative, though can have periods of anger and confusion. He is notably calmer during my visit with him at bedside this morning. The patient remains responsive. He is not depressed as noted. In the prior notes, he is not suicidal. Denies perceptual disturbance, may disoriented. Regarding his orientation, he indicates that it is September and that it is 1930. The patient was reoriented to the correct month and year. The patient is aware that he is at [facility] and he reports that things are going "so far so good." Yesterday, there was an incident in which the patient was however, at this time, the patient is much calmer and has not vocalized this request and reports intent to cooperate with his medical team. Nonetheless, he remains unpredictable due to the episodic nature of his delirium. He is unkempt, he appears sick and weak, and clearly not able to care for himself should he be discharged in which case if he does demand to leave against, this provider does not find that patient has capacity to leave AMA. Insight is poor. Judgement is inconsistent, but at this time, fair. Labs and vitals are reviewed. RELEVANT PSYCHIATRIC MEDICATIONS: The patient is being prescribed on the medical floor include Haldol 5 mg IM every 4 hours p.r.n. The patient received one dose at 7:57 p.m. last night, probably it was around the time the patient was medically discharged. Other medications include Ativan 1 mg IV every 12 p.r.n., again the patient received one dose yesterday at 1:00 p.m. as well as Seroquel b.i.d. and 25 mg at bedtime. IMPRESSION: The patient continues to have delirium secondary to multiple serious medical issues in addition to presenting alcohol withdrawal. There appears to be some improvement. The patient still remains decompensated. RECOMMENDATIONS: We will continue with current medications as they are. There is no acute indication to change them. It has only been about 24 hours since these changes were implemented. The patient's case will be signed out to Dr. Edin isaac who will continue to follow up with the patient during the week and make further recommendations based on the patient's behavior and functioning. Lidia Stafford MD
--- NOTE | 2017-08-02 11:03 | CP.PCM.PN ---
Subjective - Date & Time of Evaluation Date of Evaluation: 08/02/17 Time of Evaluation: 10:30 - Subjective Subjective: Patient at bedside aid. Chart reviewed and case discussed with nursing. Dr. Frausto and Dr. Smith's notes reviewed. The patient is presently sedated. That he has become less agitated. His problem is that he is intermittently agitated about not presently. He tends to get out of bed inappropriately which puts him at risk The patient has a past history of alcohol use, is being treated with whole brain radiation for brain tumor the patient may also have a history of dementia although that is not entirely certain at this juncture Objective - Vital Signs/Intake and Output Vital Signs (last 24 hours): Temp Pulse Resp BP Pulse Ox 97 F L 61 20 113/54 L 96 08/02/17 08:38 08/02/17 08:38 08/01/17 16:52 08/02/17 08:38 08/02/17 08:38 Intake and Output: 08/02/17 08/02/17 06:59 18:59 Intake Total 240 Output Total 100 Balance 140 - Medications Medications: Current Medications Acetaminophen (Tylenol 325mg Tab) 650 mg PO Q6H PRN PRN Reason: Fever >100.4 F Last Admin: 08/01/17 19:46 Dose: 650 mg Dexamethasone (Decadron Inj) 2 mg IVP Q6 [facility] Last Admin: 08/02/17 05:31 Dose: 2 mg Famotidine (Pepcid) 20 mg PO DAILY [facility] Last Admin: 08/01/17 10:08 Dose: 20 mg Folic Acid (Folic Acid) 1 mg PO DAILY [facility] Last Admin: 08/01/17 10:10 Dose: 1 mg Haloperidol Lactate (Haldol) 5 mg IM Q4H PRN; Protocol PRN Reason: Agitation Last Admin: 07/31/17 19:57 Dose: 5 mg Levetiracetam (Keppra 500mg Ivpb) 500 mg in 100 mls @ 200 mls/hr IVPB Q12 [facility] Last Admin: 08/01/17 21:12 Dose: 200 mls/hr Dextrose (Dextrose 5% In Water 1000 Ml) 1,000 mls @ 70 mls/hr IV .[id number] [facility] Last Admin: 08/02/17 05:45 Dose: 70 mls/hr Lisinopril (Zestril) 20 mg PO BID [facility] Last Admin: 08/01/17 18:24 Dose: 20 mg Lorazepam (Ativan) 1 mg IVP Q12 PRN; Protocol PRN Reason: Agitation Last Admin: 08/01/17 23:26 Dose: 1 mg Multivitamins (Thera Tab) 1 tab PO 0800 [facility] Last Admin: 08/02/17 08:40 Dose: 1 tab Nicotine (Nicoderm Cq) 1 patch TD DAILY [facility] Last Admin: 08/01/17 10:08 Dose: 1 patch Nitroglycerin (Nitro-Bid 2% Oint) 1 ea TOP Q4H PRN PRN Reason: hypertension Last Admin: 07/23/17 12:01 Dose: 1 ea Ondansetron HCl (Zofran Inj) 4 mg IVP Q6H PRN PRN Reason: Nausea/Vomiting Quetiapine Fumarate (Seroquel) 12.5 mg PO BID [facility] PRN Reason: Protocol Last Admin: 08/01/17 18:24 Dose: 12.5 mg Quetiapine Fumarate (Seroquel) 25 mg PO HS [facility] PRN Reason: Protocol Last Admin: 08/01/17 21:20 Dose: 25 mg Thiamine HCl (Vitamin B1 Tab) 100 mg PO DAILY [facility] Last Admin: 08/01/17 10:09 Dose: 100 mg - Labs Labs: 07/30/17 05:00 08/01/17 06:30 PT 10.9 SECONDS (9.4-12.5) 07/21/17 17:26 INR 0.96 (0.93-1.08) 07/21/17 17:26 APTT 29.3 Seconds (25.1-36.5) 07/21/17 17:26 - Constitutional Appears: Confused, Other - Psychiatric Exam Psychiatric exam: Agitated, Anxious, Depressed, Flat Affect, Homicidal Ideation , Manic (Sedate at this juncture), Normal Affect, Normal Mood, Suicidal Ideation
[2017-08-02] MEDS: levETIRAcetam 500mg IVPB 500 MG/100 ML BAG IVPB SCH ×2 (11:20→23:10)
--- NOTE | 2017-08-02 15:50 | PN ---
DATE: 08/02/2017 SUBJECTIVE: This 66-year-old male remains hospitalized, receiving brain radiation for metastatic lung cancer to the brain. He is acutely delirious and has chronic dementia secondary to chronic alcoholism and alcohol abuse and misuse. He is wearing a nicotine smoking patch because of smoking abuse and misuse. PHYSICAL EXAMINATION VITAL SIGNS: Today, he remains in normal sinus rhythm, temperature of 97, respirations are 18, pulse 61 and blood pressure 113/54 with a pulse ox of 96%. HEENT: Head: Normocephalic, atraumatic. Eyes: No icterus. Ears: Clear. Throat: Noninjected. NECK: Supple. HEART: Regular S1, S2. LUNGS: Clear. ABDOMEN: Soft. EXTREMITIES: No edema. SKIN: Without rash. NEUROLOGIC: Intact. PSYCHOLOGIC: Disoriented x3. VASCULAR: Legs warm to touch. LABORATORY DATA: White count 9000, hemoglobin 10.8, hematocrit 32.4, platelets 254,000. Sodium 139, K 4.6, chloride 103, bicarb 25, BUN 37, creatinine 1.2, random blood sugar 126. IMPRESSION: A 66-year-old male with metastatic lung cancer to the brain, now receiving brain radiation therapy under the direction of Dr. Bravo from Radiation Oncology with comorbidities of chronic alcoholism, acute delirium, chronic dementia, anemia of chronic disease, smoking abuse and chronic hypertension. PLAN: Plan is to continue Zestril, thiamine, multivitamin, Seroquel, Pepcid, nitroglycerin ointment to chest wall for p.r.n. for accelerated hypertension, Nicoderm smoking patch, Keppra for seizure prophylaxis, Haldol, folic acid, D5W and IV Decadron and p.r.n. Ativan. The patient continues to be followed by Dr. Jesus from Psychiatry, Dr. Marrero from Hematology/Oncology, Dr. Bravo from Radiation Oncology and social service who is working with family regarding disposition. Janna Mendez MD [facility]
[2017-08-03] MEDS: Dexamethasone 4 mg/1 ml IVP SCH ×5 (00:24→23:26)
[2017-08-03] MEDS: levETIRAcetam 500mg IVPB 500 MG/100 ML BAG IVPB SCH ×2 (09:21→21:54)
[2017-08-03] MEDS: Multivitamin Therapeutic Tab PO SCH (09:22)
--- NOTE | 2017-08-03 12:42 | PN ---
DATE: 08/03/2017 SUBJECTIVE: This 66-year-old male remains hospitalized with a one-to-one sitter for fall prevention. The patient continues to get agitated at different points in time and is being followed by Dr. Jesus from Psychiatry. He is cooperating with daily brain irradiation to his head for metastatic lung cancer to the brain. He denies any fever, chills, chest pain or shortness of breath. PHYSICAL EXAMINATION: VITAL SIGNS: Temperature 97.6, respirations 18, pulse 60, blood pressure 127/60 with a pulse ox of 95%. HEENT: Head normocephalic, atraumatic. Eyes: No icterus. Ears: Clear. Throat: Noninjected. NECK: Supple. HEART: Regular S1, S2. LUNGS: Clear. ABDOMEN: Soft. EXTREMITIES: No edema. SKIN: Without rash. NEUROLOGICAL: Intact. PSYCHOLOGICAL: Disoriented x3. VASCULAR: Legs warm to touch. LABORATORY DATA: White count 9000, hemoglobin 10.8, hematocrit 32.4, platelets 254,000. Sodium 139, K 4.6, chloride 103, bicarb 25, BUN 37, creatinine 1.2, random blood sugar 126. IMPRESSION: A 66-year-old male with metastatic lung cancer to his brain and acute delirium, chronic dementia, chronic alcohol abuse, alcoholism, smoking abuse, chronic hypertension, anemia of chronic disease and chronic hypertension. PLAN: The plan is to continue Zofran, Zestril, thiamine, multivitamin, Seroquel, Pepcid, Nicoderm smoking patch, nitroglycerin ointment to chest p.r.n. accelerated hypertension, Keppra, Haldol, folic acid, D5W IV fluid, Decadron and Ativan. Ultimate plan will be for Social service to meet with the patient's brother and niece regarding issues of disposition and power of head esthetician and at present, the patient remains hospitalized, receiving daily IV brain irradiation by Dr. Bravo, a heart-healthy soft bland diet, a one-to-one sitter for fall prevention and seizure precautions and antiembolism stockings to be worn daily, removed at bedtime. He is ordered to have physical therapy for reconditioning and gait training. All of the above was reviewed with the patient, bedside sitter, nursing, Case Management and Social Service. Janna Mendez MD [facility] # [id number] [facility]
[2017-08-04] MEDS: Dexamethasone 4 mg/1 ml IVP SCH ×2 (05:49→12:11)
--- NOTE | 2017-08-04 08:12 | PN ---
DATE: 08/03/2017 IDENTIFYING INFORMATION: The patient is a 66-year-old white male undergoing treatment for metastatic brain disease with whole brain radiation. Associated with this, there has been a stated alcohol withdrawal and confusion. This patient still requires a one-on-one sitter who has been the primary source of information about the patient though the patient himself was interviewed. He is cooperating with his radiation, although was complaining being here, indicates he wants to go home, and has poor insight into the nature of his condition, stating that he thinks he fell. He does inform me that his brother and sister will have been visiting from [place], staying in a hotel in [facility] and are about to go back to [place]. Other than that, however, he appears to be confused. He does not recall of my interactions with him. His level of focus and lability fluctuates. Blood pressure is 127/60, temperature 97.6, respiratory rate 18, pulse 60. Psychotropically, he is maintained on Ativan p.r.n.. He is on Decadron, Keppra, Haldol on a p.r.n. basis, Seroquel 25 mg at bedtime and 12.5 mg b.i.d. The patient's ability to care for himself are severely limited, actually , although he has poor insight into the nature of his . Cosme Jesus MD/ PhD
--- NOTE | 2017-08-04 08:19 | CP.PCM.CON ---
History of Present Illness - History of Present Illness History of Present Illness: Palliative consult requested by Dr Mendez Reason: Goals of care 66 bruna old male with history of lung cancer who presented on 07/21/17 with dizziness and tremors. He denied swallowing difficulty, nausea, vomiting, chest pain, diarrhea, constipation. CT of head showed multiple supratentorial and posterior fossa masses and small left parietal hemorrhagic mass, consistent with metastatic disease. Per Neurology, he is not as surgical candidate. Palliative RT to brain will be completed 08/09/17. Labs on admission; WBC 6.8, Hgb 10.7, Plt 243, NA 139, K 4.6, Bun22, Creat 1.1, AST 65, Albumin 3.4, Urine and coag studies normal. Tox. screen positive for alcohol level 106 and barbiturates. EKG shows NSR. PMHx: Lung cancer, HTN, alcoholism, anxiety, neurosis, anemia. Social History: Smoker,drinker, denied drug use. Lives alone. Family History Non contributory. Advance Care Planning: The patient does not have an Advanced Directive. Review of Systems: As per HPI, negative 12 point review otherwise negative. Past Patient History - Infectious Disease Hx of Infectious Diseases: None - Tetanus Immunizations Tetanus Immunization: Unknown - Past Social History Smoking Status: Heavy Smoker > 10 Cigarettes Daily - CARDIAC Hx Hypertension: Yes - PULMONARY Hx Respiratory Disorders: No - NEUROLOGICAL Hx Neurological Disorder: No - HEENT Hx HEENT Problems: No - RENAL Hx Chronic Kidney Disease: No - ENDOCRINE/METABOLIC Hx Endocrine Disorders: No - HEMATOLOGICAL/ONCOLOGICAL Hx Blood Disorders: No - INTEGUMENTARY Hx Dermatological Problems: No - MUSCULOSKELETAL/RHEUMATOLOGICAL Hx Musculoskeletal Disorders: No Hx Falls: No Hx Unsteady Gait: Yes - GASTROINTESTINAL Hx Gastrointestinal Disorders: Yes (hemorrhoids) - GENITOURINARY/GYNECOLOGICAL Hx Genitourinary Disorders: No - PSYCHIATRIC Hx Psychophysiologic Disorder: Yes Hx Depression: Yes Hx Substance Use: No - SURGICAL HISTORY Hx Surgeries: Yes (rt leg) - ANESTHESIA Hx Anesthesia: Yes Hx Anesthesia Reactions: No Hx Malignant Hyperthermia: No Meds Allergies/Adverse Reactions: Allergies Allergy/AdvReac Type Severity Reaction Status Date / Time No Known Allergies Allergy Verified 07/21/17 17:04 - Medications Medications: Current Medications Acetaminophen (Tylenol 325mg Tab) 650 mg PO Q6H PRN PRN Reason: Fever >100.4 F Last Admin: 05/28/18 19:46 Dose: 650 mg Dexamethasone (Decadron Inj) 2 mg IVP Q6 [facility] Last Admin: 08/04/17 05:49 Dose: 2 mg Famotidine (Pepcid) 20 mg PO DAILY [facility] Last Admin: 08/03/17 09:22 Dose: 20 mg Folic Acid (Folic Acid) 1 mg PO DAILY [facility] Last Admin: 08/03/17 09:22 Dose: 1 mg Haloperidol Lactate (Haldol) 5 mg IM Q4H PRN; Protocol PRN Reason: Agitation Last Admin: 07/31/17 19:57 Dose: 5 mg Levetiracetam (Keppra 500mg Ivpb) 500 mg in 100 mls @ 200 mls/hr IVPB Q12 [facility] Last Admin: 08/03/17 21:54 Dose: 200 mls/hr Dextrose (Dextrose 5% In Water 1000 Ml) 1,000 mls @ 70 mls/hr IV .[id number] [facility] Last Admin: 08/04/17 00:25 Dose: Not Given Lisinopril (Zestril) 20 mg PO BID [facility] Last Admin: 08/03/17 17:12 Dose: 20 mg Lorazepam (Ativan) 1 mg IVP Q12 PRN; Protocol PRN Reason: Agitation Last Admin: 08/01/17 23:26 Dose: 1 mg Multivitamins (Thera Tab) 1 tab PO 0800 [facility] Last Admin: 08/03/17 09:22 Dose: 1 tab Nicotine (Nicoderm Cq) 1 patch TD DAILY [facility] Last Admin: 08/03/17 09:21 Dose: 1 patch Nitroglycerin (Nitro-Bid 2% Oint) 1 ea TOP Q4H PRN PRN Reason: hypertension Last Admin: 07/23/17 12:01 Dose: 1 ea Ondansetron HCl (Zofran Inj) 4 mg IVP Q6H PRN PRN Reason: Nausea/Vomiting Quetiapine Fumarate (Seroquel) 12.5 mg PO BID [facility] PRN Reason: Protocol Last Admin: 08/03/17 17:12 Dose: 12.5 mg Quetiapine Fumarate (Seroquel) 25 mg PO HS [facility] PRN Reason: Protocol Last Admin: 08/03/17 21:36 Dose: 25 mg Thiamine HCl (Vitamin B1 Tab) 100 mg PO DAILY [facility] Last Admin: 08/03/17 09:21 Dose: 100 mg Physical Exam - Constitutional Appears: Chronically Ill - Head Exam Head Exam: NORMOCEPHALIC - Eye Exam Eye Exam: Normal appearance Pupil Exam: NORMAL ACCOMODATION - ENT Exam ENT Exam: Mucous Membranes Moist - Respiratory Exam Respiratory Exam: Decreased Breath Sounds, NORMAL BREATHING PATTERN - Cardiovascular Exam Cardiovascular Exam: REGULAR RHYTHM, +S1, +S2 - GI/Abdominal Exam GI & Abdominal Exam: Normal Bowel Sounds, Soft Additional comments: no tenderness - Back Exam Back exam: NORMAL INSPECTION - Skin Skin Exam: Dry, Warm Results - Vital Signs Recent Vital Signs: Last Vital Signs Temp 97.4 F L 08/03/17 17:56 Pulse 74 08/03/17 17:56 Resp 20 08/03/17 17:56 BP 134/67 08/03/17 17:56 Pulse Ox 94 L 08/03/17 17:56 - Labs Result Diagrams: 07/30/17 05:00 08/01/17 06:30 Assessment & Plan - Assessment and Plan (Free Text) Assessment: 66 year old male with history of adenocarcinoma of lung who is admitted with new findings of metastatic disease in the brain, currently undergoing RT to brain, delirium and alcohol/nicotine withdrawal The patient is alert, oriented to place and self. Forgetful at times, also with periods of agitation. He denies pain. Reorientated patient to the fact that he has lung cancer which has metastasized to brain. Explained that his condition is not likely to improve. Earlier, the patient stated that he did not want to continue with chemotherapy/cancer treatment. He is willing to finish radiation therapy to brain. I explained the importance of designating a health care surrogate and financial POA. Patient is agreeable to making his brother Roberto Haji financial POA. He designated his brother Roberto and his niece Rosemary as health care surrogate. JUANA Mendez was present during this conversation. The patient becomes very agitated when topic of discharge plan discussed. Patient states he whats to go home. I explained that at this point in time he was not well enough to be discharged home Patient's brother, Roberto Haji, and niece Rosemary met with Emanuel ARIAS and myself. Family understands that patient has a terminal illness. Family also aware of patient's non compliance with medical follow up as well as his history of alcoholism. Family understands that patient is unable to care for himself at home. Family aware of hospice services and is interested in hospice placement. Time spent with patient and family in goals of care and advance care planning discussions, 50 minutes Plan: Goals of care and advance care planning Delirium/agitation: Seroquel 12.5 mg twice daily. Seroquel 25 mg HS PRN. Would discontinue Haldol prn. Would keep Ativan as needed for agitation. Psych eval. may need to increase Seroquel dose to 25 mg twice daily. Brain metastasis: Decadron 2 mg IV every 6 hours. Complete RT to brain(3 sessions until completion date August 09) Seizure prevention: Keppra 500 mg twice daily Nicotine withdrawal: Continue Nicotine patch
[2017-08-04] MEDS: levETIRAcetam 500mg IVPB 500 MG/100 ML BAG IVPB SCH ×2 (10:15→22:05)
[2017-08-04] MEDS: Multivitamin Therapeutic Tab PO SCH (10:15)
--- NOTE | 2017-08-04 17:18 | PN ---
DATE: 08/04/2017 SUBJECTIVE: This 66-year-old male remains hospitalized, receiving brain radiation for metastatic lung cancer to his brain. The patient is being followed daily by case management and social service, who was trying to work a disposition planning for this gravely ill patient. Of note, the patient's brother has arrived from [place] and is here to help with disposition decisions. The patient remains acutely delirious in the setting of alcohol withdrawal syndrome with probable chronic dementia secondary to alcoholism and also has a one-to-one sitter because of high risk of falls. OBJECTIVE: VITAL SIGNS: He remains in normal sinus rhythm on the secured entrance monitor and vital signs show temperature 97.7, respirations 20, pulse 50, blood pressure 106/57 with respirations 20, and pulse ox 97%. HEENT: Head: Normocephalic, atraumatic. Eyes: No icterus. Ears: Clear. Throat: Noninjected. NECK: Supple. HEART: Regular, S1 and S2. LUNGS: Clear. ABDOMEN: Soft. EXTREMITIES: No edema. SKIN: Without rash. NEUROLOGIC: Intact. PSYCHOLOGIC: Oriented x3. VASCULAR: Legs warm to touch. LABORATORY DATA: White count 9000, hemoglobin 10.8, hematocrit 32.4, and platelets 254,000. PT/INR 0.96, PTT 29.3. Sodium 139, K 4.6, chloride 103, bicarb 25. BUN 37, creatinine 1.2. Random blood sugar is 126. IMPRESSION: A 66-year-old male with metastatic lung cancer to his brain, now with acute delirium, confusion, high risk for falls in the setting of dementia secondary to chronic alcoholism and also with history of smoking abuse, anemia of chronic disease, agitation syndrome, and chronic hypertension. PLAN: Continue Ativan, IV Decadron, folic acid, Haldol, Keppra, NicoDerm smoking patch, Pepcid, Seroquel, multivitamin, thiamine, Zestril, and Zofran p.r.n. nausea and vomiting. Disposition will be decided by the patient, case management, social service, and family. Overall prognosis remains poor, but stable at present. Janna Mendez MD [facility]
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
[2017-08-05] MEDS: levETIRAcetam 500mg IVPB 500 MG/100 ML BAG IVPB SCH (10:26)
[2017-08-05] MEDS: Multivitamin Therapeutic Tab PO SCH (10:27)
--- NOTE | 2017-08-05 14:08 | CP.PCM.PN ---
Subjective - Date & Time of Evaluation Date of Evaluation: 08/05/17 Time of Evaluation: 13:00 - Subjective Subjective: Case reviewed with nursing Patient remains problematic. His intermittently agitated, wanting to go home, fused, lacking in insight, poor judgment. Attempts are being made to get patient into a convalescent facility. Long-term prognosis poor. Have adjusted Seroquel dosage slightly upwardsnow 25 mg twice a day and at bedtime Objective - Vital Signs/Intake and Output Vital Signs (last 24 hours): Temp Pulse Resp BP Pulse Ox 97.9 F 60 18 150/64 99 08/05/17 06:00 08/05/17 06:00 08/05/17 06:00 08/05/17 06:00 08/05/17 06:00 Intake and Output: 08/05/17 08/05/17 06:59 18:59 Intake Total 660 Output Total 400 Balance 260 - Medications Medications: Current Medications Acetaminophen (Tylenol 325mg Tab) 650 mg PO Q6H PRN PRN Reason: Fever >100.4 F Last Admin: 08/01/17 19:46 Dose: 650 mg Famotidine (Pepcid) 20 mg PO DAILY [facility] Last Admin: 08/05/17 10:26 Dose: Not Given Folic Acid (Folic Acid) 1 mg PO DAILY [facility] Last Admin: 08/05/17 10:26 Dose: Not Given Levetiracetam (Keppra 500mg Ivpb) 500 mg in 100 mls @ 200 mls/hr IVPB Q12 [facility] Last Admin: 08/05/17 10:26 Dose: Not Given Levetiracetam (Keppra) 500 mg PO BID [facility] Lisinopril (Zestril) 20 mg PO BID [facility] Last Admin: 08/05/17 10:27 Dose: Not Given Lorazepam (Ativan) 1 mg IVP Q12 PRN; Protocol PRN Reason: Agitation Last Admin: 08/05/17 07:11 Dose: 1 mg Methylprednisolone (Medrol) 4 mg PO DAILY [facility] Multivitamins (Thera Tab) 1 tab PO 0800 [facility] Last Admin: 08/05/17 10:27 Dose: Not Given Nicotine (Nicoderm Cq) 1 patch TD DAILY [facility] Last Admin: 08/05/17 10:26 Dose: Not Given Nitroglycerin (Nitro-Bid 2% Oint) 1 ea TOP Q4H PRN PRN Reason: hypertension Last Admin: 07/23/17 12:01 Dose: 1 ea Ondansetron HCl (Zofran Inj) 4 mg IVP Q6H PRN PRN Reason: Nausea/Vomiting Quetiapine Fumarate (Seroquel) 25 mg PO HS [facility] PRN Reason: Protocol Last Admin: 08/04/17 22:05 Dose: 25 mg Quetiapine Fumarate (Seroquel) 25 mg PO BID [facility] PRN Reason: Protocol Quetiapine Fumarate (Seroquel) 25 mg PO HS PRN; Protocol PRN Reason: Agitation Thiamine HCl (Vitamin B1 Tab) 100 mg PO DAILY [facility] Last Admin: 08/05/17 10:27 Dose: Not Given - Labs Labs: 07/30/17 05:00 08/01/17 06:30 PT 10.9 SECONDS (9.4-12.5) 07/21/17 17:26 INR 0.96 (0.93-1.08) 07/21/17 17:26 APTT 29.3 Seconds (25.1-36.5) 07/21/17 17:26 - Constitutional Appears: Unkempt, Confused - Neurological Exam Neurological Exam: Altered - Psychiatric Exam Psychiatric exam: Normal Affect, Normal Mood. absent: Agitated, Anxious, Depressed, Flat Affect, Homicidal Ideation, Manic, Suicidal Ideation Additional comments: Intermittent agitation and confusion Assessment and Plan - Assessment and Plan (Free Text) Assessment: Working on convalescent facility placement
--- NOTE | 2017-08-06 00:04 | PN ---
DATE: 08/05/2017 SUBJECTIVE: This 66-year-old male was examined at bedside where he remains easily agitated and confused to person, place and time. He is being followed by Dr. Jesus from Psychiatry who does feel that the patient is medically and psychiatrically incompetent to manage his medical affairs, and the patient has had the help of his brother Roberto who has flown up from [place] to assist Social Service with decisions regarding placement. After further discussion with Social Service, Lamine Contreras, the patient is being readied for hospice and is going to require 2 additional brain irradiation treatments for metastatic lung cancer to his brain. PHYSICAL EXAMINATION: VITAL SIGNS: Temperature 97.9, respirations 18, pulse 60, blood pressure 150/64. Pulse ox 99%. HEENT: Head: Normocephalic, atraumatic. Eyes: No icterus. Ears: Clear. Throat: Noninjected. NECK: Supple. HEART: Regular S1 and S2. LUNGS: Clear. ABDOMEN: Soft. EXTREMITIES: No edema. SKIN: Without rash. NEUROLOGICAL: Unchanged. PSYCHOLOGICAL: Agitated and confused. VASCULAR: Legs warm to touch. IMPRESSION: This is a 66-old-male with metastatic lung cancer to his brain, acute delirium, probable chronic dementia secondary to alcohol abuse and misuse, anemia of chronic disease, smoking abuse, peptic ulcer disease with gastroesophageal reflux disease, chronic hypertension. PLAN: The plan is to continue Ativan, folic acid, Keppra, oral Solu-Medrol, Nicoderm smoking patch, Pepcid, Seroquel, multivitamin, thiamine and Zestril. The patient continues with a one-to-one sitter for fall precautions. He also is completing brain irradiation under the direction of Dr. Bravo from Radiation [facility]. He continues on a heart-healthy soft bland diet, and will be readied for transfer to hospice when medically stable. Janna Mendez MD
[2017-08-06] MEDS: Multivitamin Therapeutic Tab PO SCH (09:39)
--- NOTE | 2017-08-06 22:08 | PN ---
DATE: 08/06/2017 SUBJECTIVE: This 66-year-old male remains hospitalized, receiving brain irradiation treatment for metastatic lung cancer to his brain. He has acute delirium, chronic dementia and chronic alcoholism. He requires a one-to-one sitter for fall precautions, and is awaiting hospice placement. He does have periods of severe agitation where he becomes extremely frustrated and abusive verbally with the staff. PHYSICAL EXAMINATION: VITAL SIGNS: He remains in a normal sinus rhythm on the media monitor, and today temperature was 97.9, respirations 18, pulse 74, and blood pressure 103/61, with pulse ox 94%. HEENT: Head normocephalic, atraumatic. Eyes: No icterus. Ears: Clear. Throat: Noninjected. NECK: Supple. HEART: Regular S1 and S2. LUNGS: Clear. ABDOMEN: Soft. EXTREMITIES: No edema. SKIN: Without rash. NEUROLOGICAL: Intact. PSYCHOLOGICAL: Confused to person, place and time. VASCULAR: Legs warm to touch. IMPRESSION: A 66-year-old male with newly noted metastatic lung cancer to his brain with acute delirium, chronic dementia, chronic alcoholism, smoking misuse and abuse, peptic ulcer disease with gastroesophageal reflux disease, anemia of chronic disease and chronic hypertension. He will continue to receive Ativan 2 mg IV every 6 hours p.r.n. severe agitation, folic acid 1 mg p.o. daily, Keppra 500 mg p.o. b.i.d., Medrol 4 mg p.o. daily, Nicoderm smoking patch 14 mg to the arm daily, Pepcid 20 mg p.o. daily, Seroquel 25 mg p.o. b.i.d., Seroquel 25 mg p.o. at bedtime, multivitamin one tablet daily, thiamine 100 mg p.o. daily and Zestril 20 mg p.o. b.i.d. The patient will receive comfort measures, seizure precautions, fall precautions. He is wearing antiembolism stockings, heart-healthy soft bland diet, physical therapy for ambulation safety, with ultimate plan for discharge to hospice when stable. Janna Mendez MD [facility] # [id number] MTDD
[2017-08-07 08:22] VITALS: RESP 20
[2017-08-07] MEDS: Multivitamin Therapeutic Tab PO SCH (09:50)
--- NOTE | 2017-08-07 23:11 | PN ---
DATE: 08/07/2017 SUBJECTIVE: This 66-year-old male remains hospitalized, awaiting hospice transfer once the brain irradiation treatment for metastatic lung cancer to his brain is completed. He remained agitated and demented with acute delirium and multiple medical problems including anemia of chronic disease, alcoholism, lung cancer with brain mets and anemia of chronic disease. At present, he has a one-to-one sitter, he is easily agitated. PHYSICAL EXAMINATION: VITAL SIGNS: His temperature was 98.6, respirations 20, pulse 79 and blood pressure 121/70 with a pulse ox of 96% on room air. HEENT: Head, normocephalic and atraumatic. Eyes, no icterus. Ears, clear. Throat, noninjected. NECK: Supple. HEART: Regular, S1 and S2. LUNGS: Clear. ABDOMEN: Soft. EXTREMITIES: No edema. SKIN: Without rash. NEUROLOGIC: Intact. PSYCHOLOGIC: Alert, but confused. VASCULAR: Legs warm to touch. IMPRESSION: A 66-year-old male with metastatic lung cancer to the brain, receiving brain irradiation treatments for brain metastases with comorbidities of anxiety neurosis, acute delirium, chronic dementia, chronic alcoholism, anemia of chronic disease, peptic ulcer disease with gastroesophageal reflux disease and chronic hypertension. He will continue with his one-to-one sitter. He will complete brain irradiation therapy and will be readied for hospice. At present, he received Ativan, folic acid, Keppra, oral Medrol, Nicoderm smoking patch, Pepcid, Seroquel, multivitamin, thiamine and Zestril. He remains on fall precautions. Overall prognosis remains poor. Patient will continue to be treated in conservative and compassionate way. Social Service has arranged hospice after discussion with the patient's next of kin brother Roberto Haji. Janna Mendez MD [facility]TDD
--- NOTE | 2017-08-08 09:33 | CP.PCM.PN ---
Subjective - Date & Time of Evaluation Date of Evaluation: 08/08/17 Time of Evaluation: 09:30 - Subjective Subjective: patient seen in bed, resting comfortabley, 1:1 monitor has been discontinued, as per Dr. Jesus. Objective - Vital Signs/Intake and Output Vital Signs (last 24 hours): Temp Pulse Resp BP Pulse Ox 97.3 F L 81 20 103/49 L 95 08/08/17 08:32 08/08/17 08:32 08/07/17 18:00 08/08/17 08:32 08/08/17 08:32 Intake and Output: 08/08/17 08/08/17 06:59 18:59 Intake Total 780 Output Total 375 Balance 405 - Medications Medications: Current Medications Famotidine (Pepcid) 20 mg PO DAILY [facility] Last Admin: 08/07/17 09:50 Dose: 20 mg Folic Acid (Folic Acid) 1 mg PO DAILY [facility] Last Admin: 08/07/17 09:50 Dose: 1 mg Levetiracetam (Keppra) 500 mg PO BID [facility] Last Admin: 08/07/17 17:45 Dose: 500 mg Lisinopril (Zestril) 20 mg PO BID [facility] Last Admin: 08/07/17 17:46 Dose: 20 mg Lorazepam (Ativan) 2 mg IVP Q6H PRN; Protocol PRN Reason: Agitation Last Admin: 08/07/17 13:53 Dose: 2 mg Methylprednisolone (Medrol) 4 mg PO DAILY [facility] Last Admin: 08/07/17 09:52 Dose: 4 mg Multivitamins (Thera Tab) 1 tab PO 0800 [facility] Last Admin: 08/07/17 09:50 Dose: 1 tab Nicotine (Nicoderm Cq) 1 patch TD DAILY [facility] Last Admin: 08/07/17 09:50 Dose: 1 patch Quetiapine Fumarate (Seroquel) 25 mg PO HS [facility] PRN Reason: Protocol Last Admin: 08/07/17 21:28 Dose: 25 mg Quetiapine Fumarate (Seroquel) 25 mg PO BID [facility] PRN Reason: Protocol Last Admin: 08/07/17 17:46 Dose: 25 mg Quetiapine Fumarate (Seroquel) 25 mg PO HS PRN; Protocol PRN Reason: Agitation Last Admin: 08/07/17 01:18 Dose: 25 mg Thiamine HCl (Vitamin B1 Tab) 100 mg PO DAILY [facility] Last Admin: 08/07/17 09:52 Dose: 100 mg - Labs Labs: 07/30/17 05:00 08/01/17 06:30 PT 10.9 SECONDS (9.4-12.5) 07/21/17 17:26 INR 0.96 (0.93-1.08) 07/21/17 17:26 APTT 29.3 Seconds (25.1-36.5) 07/21/17 17:26
[2017-08-08] MEDS: Multivitamin Therapeutic Tab PO SCH (09:57)
--- NOTE | 2017-08-08 13:39 | PN ---
DATE: 08/08/2017 SUBJECTIVE: This 66-year-old male remains hospitalized. He is receiving the final treatments for his brain irradiation of metastatic lung cancer to the brain. He remains delirious, confused and at high risk of fall given his confusional state. PHYSICAL EXAMINATION VITAL SIGNS: Temperature is 97.3, respirations 20, pulse 81, blood pressure 103/49, pulse ox 100% on room air. HEENT: Head: Normocephalic, atraumatic. Eyes: No icterus. Ears: Clear. Throat: Noninjected. NECK: Supple. HEART: Regular S1, S2. LUNGS: Clear. ABDOMEN: Soft. EXTREMITIES: No edema. SKIN: Without rash. NEUROLOGICAL: Intact. PSYCHOLOGICAL: Confused to person, place and time. VASCULAR: Legs warm to touch. IMPRESSION: A 66-year-old male with chronic alcoholism, now status post alcohol withdrawal syndrome with acute delirium, chronic dementia, metastatic lung cancer to the brain, anemia of chronic disease, hypertension and degenerative arthritis. PLAN: We will continue his one-to-one sitter for fall prevention and Ativan, folic acid, Keppra, Medrol, Nicoderm smoking patch, Pepcid, Seroquel, multivitamin, thiamine and Zestril. Upon completion of his brain irradiation treatment, he will be readied for transfer to hospice as per his brother, Roberto Haji's request. Overall prognosis though poor remains stable at present. Janna Mendez MD MTDTruman
--- NOTE | 2017-08-08 17:23 | PN ---
DATE: 08/08/2017 Chart reviewed and case discussed with Nursing. SUBJECTIVE: The patient is a 66-year-old confused male with a history of alcohol use, possible dementia that may or may not be associated with that alcohol use. He is undergoing whole brain radiation treatment for a brain tumor and is scheduled to go to a hospice. He has intermittent periods of confusion, still has a desire to go home, and needs encouragement and support. His one-on-one has been discontinued. OBJECTIVE: VITAL SIGNS: Blood pressure 103/49, respiratory rate 20, pulse 81, temperature 97.3. Psychotropically, the patient is being maintained on an Ativan p.r.n. push, Seroquel 25 mg at bedtime and 25 mg b.i.d. The patient's insight and judgment are considered to be impaired. Cosme Jesus MD/ PhD
[2017-08-08 17:38] VITALS: TEMP 97.8
--- NOTE | 2017-08-09 04:24 | CP.PCM.PN ---
Subjective - Date & Time of Evaluation Date of Evaluation: 08/09/17 Time of Evaluation: 04:21 - Subjective Subjective: S: Patient was seen for agitation. States he wants to eat, he is hungry. Has no other complaints. Medical record was reviewed. O: Last Vital Signs 3 Temp 97.8 F 08/08/17 17:37 Pulse 84 08/08/17 17:37 Resp 20 08/08/17 17:37 BP 130/52 L 08/08/17 17:37 Pulse Ox 98 08/08/17 17:37 Awake, alert, somewhat restless. LUNGS:Normal breathing pattern. A:Agitation. P: Ativan 0.5 mg IV x 1. Objective - Vital Signs/Intake and Output Vital Signs (last 24 hours): Temp Pulse Resp BP Pulse Ox 97.8 F 84 20 130/52 L 98 08/08/17 17:37 08/08/17 17:37 08/08/17 17:37 08/08/17 17:37 08/08/17 17:37 Intake and Output: 08/08/17 08/09/17 18:59 06:59 Intake Total 540 Output Total 200 Balance 340 - Medications Medications: Current Medications Famotidine (Pepcid) 20 mg PO DAILY [facility] Last Admin: 08/08/17 09:57 Dose: 20 mg Folic Acid (Folic Acid) 1 mg PO DAILY [facility] Last Admin: 08/08/17 09:56 Dose: 1 mg Levetiracetam (Keppra) 500 mg PO BID [facility] Last Admin: 08/08/17 17:47 Dose: 500 mg Lisinopril (Zestril) 20 mg PO BID [facility] Last Admin: 08/08/17 17:47 Dose: 20 mg Lorazepam (Ativan) 2 mg IVP Q6H PRN; Protocol PRN Reason: Agitation Last Admin: 08/09/17 01:11 Dose: 2 mg Methylprednisolone (Medrol) 4 mg PO DAILY [facility] Last Admin: 08/08/17 09:57 Dose: 4 mg Multivitamins (Thera Tab) 1 tab PO 0800 [facility] Last Admin: 08/08/17 09:57 Dose: 1 tab Nicotine (Nicoderm Cq) 1 patch TD DAILY [facility] Last Admin: 08/08/17 09:56 Dose: 1 patch Quetiapine Fumarate (Seroquel) 25 mg PO HS [facility] PRN Reason: Protocol Last Admin: 08/08/17 22:49 Dose: Not Given Quetiapine Fumarate (Seroquel) 25 mg PO BID [facility] PRN Reason: Protocol Last Admin: 08/08/17 17:47 Dose: 25 mg Quetiapine Fumarate (Seroquel) 25 mg PO HS PRN; Protocol PRN Reason: Agitation Last Admin: 08/09/17 00:50 Dose: 25 mg Thiamine HCl (Vitamin B1 Tab) 100 mg PO DAILY [facility] Last Admin: 08/08/17 09:56 Dose: 100 mg - Labs Labs: 07/30/17 05:00 08/01/17 06:30 PT 10.9 SECONDS (9.4-12.5) 07/21/17 17:26 INR 0.96 (0.93-1.08) 07/21/17 17:26 APTT 29.3 Seconds (25.1-36.5) 07/21/17 17:26
[2017-08-09 08:28] VITALS: BP 105/50; PULSE 76; O2SAT 97
[2017-08-09] MEDS: Multivitamin Therapeutic Tab PO SCH (09:35)
--- NOTE | 2017-08-09 16:28 | DS ---
SUBJECTIVE: This 66-year-old male is being evaluated for hospice. He is still receiving brain irradiation treatments, the last of which should be today for metastatic lung cancer to his brain. PHYSICAL EXAMINATION GENERAL: He remains alert and confused to person, place and time and does have periods of agitation. VITAL SIGNS: Temperature is 97.8, respirations 20, pulse 76 and blood pressure 105/50 with a pulse ox of 97% on room air. HEENT: Head: Normocephalic, atraumatic. Eyes: No icterus. Ears: Clear. Throat: Noninjected. NECK: Supple. HEART: Regular S1, S2. LUNGS: Clear. ABDOMEN: Soft. EXTREMITIES: No edema. SKIN: Without rash. NEUROLOGICAL: Unchanged. PSYCHOLOGICAL: Confused. VASCULAR: Legs warm to touch. IMPRESSION: A 66-year-old male with metastatic lung cancer to brain with acute delirium, chronic dementia, history of alcohol abuse and misuse, chronic alcoholism, anemia of chronic disease, degenerative arthritis and chronic hypertension. PLAN: He will continue on Zestril 20 mg p.o. b.i.d., thiamine 100 mg p.o. daily, multivitamin 1 tablet daily, Seroquel 25 mg p.o. b.i.d., Seroquel 25 mg p.o. at bedtime., Pepcid 20 mg p.o. daily, Nicoderm 14 mg patch to arm daily, Medrol 4 mg p.o. daily, Keppra 500 mg p.o. b.i.d., folic acid 1 mg p.o. daily and Ativan 2 mg IV every 6 hours p.r.n. agitation. Once the patient is accepted for hospice, he can be transferred and overall prognosis remains poor. Janna Mendez MD MTDD
== END 2017-08-09 14:46 | DRG 54 ==
LOC: ED 16:54 → ERH 19:18 → 2RNO 07-22 00:12 → 3RNO 07-27 20:32 → 3RSO 07-31 05:01
PROVIDERS: ADMIT Internal Medicine; ATTEND Internal Medicine
DX: C79.31 Secondary malignant neoplasm of brain (principal); G93.41 Metabolic encephalopathy; G93.6 Cerebral edema; C34.90 Malignant neoplasm of unspecified part of unspecified bronchus or lung; F10.231 Alcohol dependence with withdrawal delirium; F10.27 Alcohol dependence with alcohol-induced persisting dementia; F17.203 Nicotine dependence unspecified, with withdrawal; D63.8 Anemia in other chronic diseases classified elsewhere; F02.80 Dementia in other diseases classified elsewhere, unspecified severity, without behavioral disturbance, psychotic disturbance, mood disturbance, and anxiety; F32.89 Other specified depressive episodes; F41.1 Generalized anxiety disorder; I10 Essential (primary) hypertension; K21.9 Gastro-esophageal reflux disease without esophagitis; K27.9 Peptic ulcer, site unspecified, unspecified as acute or chronic, without hemorrhage or perforation; N40.0 Benign prostatic hyperplasia without lower urinary tract symptoms; S09.90XA Unspecified injury of head, initial encounter; X58.XXXA Exposure to other specified factors, initial encounter; Y90.5 Blood alcohol level of 100-119 mg/100 ml; Z79.899 Other long term (current) drug therapy; Z85.46 Personal history of malignant neoplasm of prostate; Z87.11 Personal history of peptic ulcer disease; Z91.19 Patient's noncompliance with other medical treatment and regimen; Z91.81 History of falling; Z92.3 Personal history of irradiation

== ENCOUNTER 2017-08-11 12:00 | Inpatient (IN) | payer MEDICARE, OTHER ==
--- NOTE | 2017-08-11 12:21 | ED PDOC ---
Arrival/HPI - General Time Seen by Provider: 08/11/17 12:05 - History of Present Illness Narrative History of Present Illness (Text): 08/11/17 12:14 Patient is a 66 y/o M with metastatic lung cancer to brain, dementia, presenting with agitation from [facility] ([facility] Patient on seroquel and ativan prn for agitation, as well as keppra for metastatic disease. half-way staff reports that "extremely delirious, combative behavior, aggressive behavior" Patient was admitted to hospital from 07/21 and and was evaluated by psych for his agitation. Patient had multiple meetings with SW and patient's family for [facility] placement. half-way sent patient's belongings with him. Past Medical History - Infectious Disease Hx of Infectious Diseases: None - Tetanus Immunization Tetanus Immunization: Unknown - Cardiac Hx Hypertension: Yes - Pulmonary Hx Respiratory Disorders: No - Neurological Hx Neurological Disorder: No - HEENT Hx HEENT Disorder: No - Renal Hx Renal Disorder: No - Endocrine/Metabolic Hx Endocrine Disorders: No - Hematological/Oncological Hx Blood Disorders: No - Integumentary Hx Dermatological Disorder: No - Musculoskeletal/Rheumatological Hx Musculoskeletal Disorders: No Hx Falls: No Hx Unsteady Gait: Yes - Gastrointestinal Hx Gastrointestinal Disorders: Yes (hemorrhoids) - Genitourinary/Gynecological Hx Genitourinary Disorders: No - Psychiatric Hx Psychophysiologic Disorder: Yes Hx Depression: Yes Hx Substance Use: No - Surgical History Hx Orthopedic Surgery: Yes (right leg) Other/Comment: hemorrhoids - Anesthesia Hx Anesthesia: Yes Hx Anesthesia Reactions: No Hx Malignant Hyperthermia: No - Suicidal Assessment Feels Threatened In Home Enviroment: No Family/Social History Family/Social History: No Known Family HX Smoking Status: Heavy Smoker > 10 Cigarettes Daily Hx Alcohol Use: Yes Amount per day: 6 (12oz Stevens-Lite) Hx Substance Use: No Hx Substance Use Treatment: No Allergies/Home Meds Allergies/Adverse Reactions: Allergies No Known Allergies Allergy (Verified 07/21/17 17:04) Review of Systems - Review of Systems Systems not reviewed;Unavailable: Dementia Physical Exam Vital Signs Temp Pulse Resp BP Pulse Ox 08/11/17 12:00 97.5 F L 90 18 118/68 98 Temperature: Afebrile Blood Pressure: Normal Pulse: Regular Respiratory Rate: Normal Appearance: Positive for: Well-Appearing, Non-Toxic, Comfortable Pain Distress: None Mental Status: Positive for: Agitated - Systems Exam Head: Present: Atraumatic, Normocephalic Pupils: Present: PERRL Extroacular Muscles: Present: EOMI Conjunctiva: Present: Normal Mouth: Present: Moist Mucous Membranes Neck: Present: Normal Range of Motion Respiratory/Chest: Present: Clear to Auscultation, Good Air Exchange. No: Respiratory Distress, Accessory Muscle Use Cardiovascular: Present: Regular Rate and Rhythm, Normal S1, S2. No: Murmurs Abdomen: No: Tenderness, Distention, Peritoneal Signs Back: No: CVA Tenderness, Midline Tenderness Upper Extremity: No: Cyanosis, Edema Lower Extremity: Present: Other (moving extremities x 4). No: Edema Neurological: Present: GCS=15, CN II-XII Intact, Motor Func Grossly Intact. No : Speech Normal (nonsensical speech) Skin: Present: Warm, Dry, Normal Color. No: Rashes Psychiatric: Present: Alert, Agitated. No: Oriented x 3 Medical Decision Making ED Course and Treatment: 08/11/17 12:33 CT shows Multiple metastatic lesions. Decreased vasogenic edema. No evidence of hemorrhage Patient is likely at baseline due to metastatic cancer. Placed on 1:1 and ativan prn ordered. Spoke to Dr. Mendez, Dr. Jesus and JUANA Wiggins. [facility] requesting patients agitation be "stabilized" before return. 08/11/17 15:12 Labs show hyperkalemic with worsening renal function. NS IVF ordered. Hyperkalemic treatment ordered. EKG shows no acute changes 08/11/17 16:13 EKG shows NSR at 76bpm with no ST changes - Lab Interpretations Lab Results: 08/11/17 13:27 08/11/17 13:27 Lab Results 08/11/17 13:27: Sodium 143, Potassium 5.5 H, Chloride 108 H, Carbon Dioxide 24, Anion Gap 17, BUN 40 H, Creatinine 1.8 H, Est GFR ( Amer) 46, Est GFR ( Non-Af Amer) 38, Random Glucose 109, Calcium 9.8, Total Bilirubin 0.2, AST 33, ALT 40, Alkaline Phosphatase 109, Total Protein 7.6, Albumin 4.0, Globulin 3.5, Albumin/Globulin Ratio 1.1 08/11/17 13:27: WBC 9.5, RBC 3.50, Hgb 11.6 L, Hct 34.6 L, MCV 98.9, MCH 33.1, MCHC 33.5, RDW 13.0, Plt Count 275, MPV 8.6, Gran % 83.5 H, Lymph % (Auto) 12.1 L, Collier % (Auto) 3.1, Eos % (Auto) 1.3 L, Baso % (Auto) 0.0, Gran # 7.97 H, Lymph # (Auto) 1.2, Collier # (Auto) 0.3, Eos # (Auto) 0.1, Baso # (Auto) 0.00 - RAD Interpretation Radiology Orders: 08/11/17 12:27 HEAD W/O CONTRAST [CT] Stat - Medication Orders Current Medication Orders: Acetaminophen (Tylenol 325mg Tab) 650 mg PO Q6H PRN PRN Reason: pain or fever Famotidine (Pepcid) 20 mg PO HS [facility] Folic Acid (Folic Acid) 1 mg PO DAILY [facility] Dextrose/Sodium Chloride (Dextrose 5%/0.45% Ns 1000 Ml) 1,000 mls @ 125 mls/hr IV .Q8H [facility] Levetiracetam (Keppra) 500 mg PO BID [facility] Lisinopril (Zestril) 20 mg PO BID [facility] Lorazepam (Ativan) 2 mg IVP Q6 PRN; Protocol PRN Reason: Agitation Last Admin: 08/11/17 13:22 Dose: 2 mg IVP Administration Document 08/11/17 13:22 GMD (Rec: 08/11/17 13:22 GMD [id number]) Charges for Administration # of IVP Administrations 1 Methylprednisolone (Medrol) 4 mg PO DAILY [facility] Stop: 08/16/17 10:00 Nicotine (Nicoderm Cq) 1 patch TD DAILY [facility] Ondansetron HCl (Zofran Inj) 4 mg IVP Q6H PRN PRN Reason: Nausea/Vomiting Quetiapine Fumarate (Seroquel) 25 mg PO BID [facility] PRN Reason: Protocol Quetiapine Fumarate (Seroquel) 25 mg PO HS [facility] PRN Reason: Protocol Thiamine HCl (Vitamin B1 Tab) 100 mg PO DAILY [facility] Discontinued Medications Calcium Gluconate (Calcium Gluconate Iv) 1,000 mg IVP ONCE ONE Stop: 08/11/17 16:31 Dextrose (Dextrose 50% Inj) 50 ml IVP STAT [facility] Stop: 08/11/17 16:31 Haloperidol Lactate (Haldol) 5 mg IM STAT [facility] PRN Reason: Protocol Stop: 08/11/17 13:36 Last Admin: 08/11/17 15:07 Dose: 5 mg IM Administration Charges Document 08/11/17 15:07 GMD (Rec: 08/11/17 15:07 GMD [id number]) Injection Site MAR Injection Site Left Deltoid Charges for Administration # of IM Administrations 1 Sodium Chloride (Sodium Chloride 0.9%) 1,000 mls @ 999 mls/hr IV .Q1H1M [facility] Stop: 08/11/17 16:10 Last Admin: 08/11/17 16:35 Dose: 999 mls/hr eMAR Start Stop Document 08/11/17 16:35 MS (Rec: 08/11/17 16:35 MS [id number]) Intravenous Solution Start Date 08/11/17 Start Time 16:35 End Date 08/11/17 End time 17:35 Total Infusion Time 60 Insulin Human Regular (Humulin R) 8 units IV STAT [facility] Stop: 08/11/17 16:33 Lisinopril (Zestril) 20 mg PO DAILY [facility] Multivitamins (Thera Tab) 1 tab PO STAT [facility] Stop: 08/11/17 16:25 Sodium Bicarbonate (Sodium Bicarbonate 8.4% (50 Meq) Syringe) 50 meq IVP STAT [facility] Stop: 08/11/17 16:33 - Scribe Statement The provider has reviewed the documentation as recorded by the Israeliblali Aranda All medical record entries made by the Scriblali were at my direction and personally dictated by me. I have reviewed the chart and agree that the record accurately reflects my personal performance of the history, physical exam, medical decision making, and the department course for this patient. I have also personally directed, reviewed, and agree with the discharge instructions and disposition. Disposition/Present on Arrival - Present on Arrival Any Indicators Present on Arrival: No History of DVT/PE: No History of Uncontrolled Diabetes: No Urinary Catheter: No History Surgical Site Infection Following: None - Disposition Have Diagnosis and Disposition been Completed?: Yes Diagnosis: Anemia, Brain neoplasm, Agitation, Hyperkalemia Disposition: HOSPITALIZED Disposition Time: 13:37 Patient Plan: Admission Patient Problems: Current Active Problems Problem Status Onset Agitation Acute Anemia Acute Brain neoplasm Acute Hyperkalemia Acute Condition: FAIR
[2017-08-11 12:31] VITALS: BMI 23.4
[2017-08-11 13:32] LABS: EOS # 0.1 (0.0-0.7); EOS % 1.3 % (1.5-5.0); GRAN # 7.97 (1.4-6.5); GRAN % 83.5 % (50.0-68.0); HEMOGLOBIN 11.6 g/dL (14.0-18.0); LYMPH # 1.2 (1.2-3.4); LYMPH % 12.1 % (22.0-35.0); MEAN CELL VOLUME 98.9 fl (80.0-105.0); MEAN CORPUSCULAR HEMOGLOBIN 33.1 pg (25.0-35.0); MEAN CORPUSCULAR HGB CONC 33.5 g/dl (31.0-37.0); MEAN PLATELET VOLUME 8.6 fl (7.0-11.0); MONO # 0.3 (0.1-0.6); MONO % 3.1 % (1.0-6.0); RBC 3.5 10^6/uL (3.5-6.1); WHITE BLOOD COUNT 9.5 10^3/ul (4.5-11.0)
[2017-08-11 13:44] LABS: ALB/GLOB RATIO 1.1 (1.1-1.8); CALCIUM 9.8 mg/dL (8.4-10.5)
--- NOTE | 2017-08-11 15:00 | CT ---
PROCEDURE: CT HEAD WITHOUT CONTRAST. HISTORY: altered COMPARISON: CT 07/23/2017 TECHNIQUE: Axial computed tomography images were obtained through the head/brain without intravenous contrast. Radiation dose: Total exam DLP = 939 mGy-cm. This CT exam was performed using one or more of the following dose reduction techniques: Automated exposure control, adjustment of the mA and/or kV according to patient size, and/or use of iterative reconstruction technique. FINDINGS: HEMORRHAGE: No intracranial hemorrhage. BRAIN: The previous study was enhance with contrast and showed multiple metastatic lesions in the brain. These lesions are more difficult to appreciate on the current exam but are visible over the convexity of both frontal lobes. There is also a necrotic or cystic lesion in the right occipital lobe measuring 22 mm in diameter. There is a decrease in the amount of vasogenic edema compare to the previous exam. There has been a previous left temporal craniotomy. There is encephalomalacia in the adjacent temporal lobe VENTRICLES: Unremarkable. No hydrocephalus. CALVARIUM: Unremarkable. PARANASAL SINUSES: Unremarkable as visualized. No significant inflammatory changes. MASTOID AIR CELLS: Unremarkable as visualized. No inflammatory changes. OTHER FINDINGS: None. IMPRESSION: Multiple metastatic lesions. Decreased vasogenic edema. No evidence of hemorrhage
[2017-08-11] MEDS ORDERED: Sodium Chloride 0.9% 1,000 ML IV STA (15:10)
[2017-08-11] MEDS ORDERED: Multivitamin Therapeutic Tab PO STA (16:24)
[2017-08-11] MEDS ORDERED: Dextrose 50% SYRINGE Inj (50 ml) IVP STA ×2 (16:30→18:42)
[2017-08-11] MEDS ORDERED: Sodium Bicarbonate (8.4%) 50 Meq Syringe IVP STA (16:32)
[2017-08-11] MEDS ORDERED: Insulin Regular 1 UNITS/0.01 ML ML IV STA ×2 (16:32→18:42)
--- NOTE | 2017-08-11 18:28 | CARD ---
APPROVED REPORT EKG Measurement Heart [id number] <Conclusion> Normal sinus rhythm Normal ECG No change
[2017-08-11] MEDS: Dextrose 5%/0.45% NS 1,000 ML IV SCH (18:30)
[2017-08-11] MEDS ORDERED: Pneumococcal 23-Valent Vaccine IM ONE (23:32)
[2017-08-12] MEDS: Dextrose 5%/0.45% NS 1,000 ML IV SCH (01:05)
--- NOTE | 2017-08-12 03:45 | HP ---
DATE OF EXAM: 08/11/2017 HISTORY OF PRESENT ILLNESS: This 66-year-old male was evaluated in the emergency room. He was sent to the [place] [facility] for further evaluation of agitation. He has been residing at a local rehab center, became agitated on the olivera and was sent for further evaluation of the above. In the emergency room, he underwent an immediate head CT, which showed no intracranial hemorrhage, but multiple metastatic lesions as well as decreased vasogenic edema and no evidence of hemorrhage. This is consistent with his diagnosis of metastatic lung cancer to his brain. PAST MEDICAL HISTORY: His past medical history is extensive and includes lung cancer, lung mets to the brain with recent hospitalization for brain irradiation, history of chronic alcoholism, chronic smoking abuse and misuse, recent alcohol withdrawal syndrome, chronic agitation, and risk for seizure syndrome. MEDICATIONS: The patient was discharged to the [facility] rehab on Pepcid, folic acid, Ativan, Zestril, multivitamin, Nicoderm smoking patch, Seroquel, thiamine, Keppra and Medrol. ALLERGIES: He has no known allergies to medication. SOCIAL HISTORY: He is a former smoker, former drinker. No history of IV drug misuse. FAMILY HISTORY: Not applicable. REVIEW OF SYSTEMS: CONSTITUTIONAL: No reports of fever or chills. HEENT: Head review, no reports of recent head trauma or seizure. Eye review, no change in visual acuity. Ear review, no hearing loss. Throat review, no swallowing difficulty. NECK: No stiffness. CARDIAC: Chronic hypertension. PULMONARY: Lung cancer with mets to brain. GI: No hematemesis. No melena. : No dysuria. SKIN: No rash. VASCULAR: No claudication. PSYCHOLOGICAL: He is chronically confused. NEUROLOGICAL: Brain mets, status post brain irradiation treatments. PHYSICAL EXAMINATION: VITAL SIGNS: Temperature 97.5, respirations 18, pulse 90, blood pressure 118/68, pulse ox 98% on room air. HEENT: Head: Normocephalic, atraumatic. Eyes: No icterus. Ears: Clear. Throat: Noninjected. NECK: Supple. HEART: Regular, S1, S2. LUNGS: Clear. ABDOMEN: Soft. EXTREMITIES: No edema. SKIN: Without rash. NEUROLOGIC: Able to move all four extremities. PSYCHOLOGIC: Confused to person, place and time. VASCULAR: Legs warm to touch. LABORATORY DATA: Sodium 143, K 5.5, chloride 108, bicarb 24, BUN 40, creatinine 1.8, random blood sugar 109. Bilirubin 0.2, AST 33, ALT 40, and alk phos 109. White count 9500, hemoglobin 11.6, hematocrit 34.6, platelets 275,000. Head CT was reviewed. It showed decrease in vasogenic edema, no acute infarct, no acute hemorrhage. IMPRESSION AND PLAN: A 66-year-old male with metastatic lung cancer to his brain, with multiple comorbidities including chronic agitation, confusional state, smoking abuse and misuse, alcoholism, chronic hypertension, anemia of chronic disease. The plan will be to admit this patient. I will call a psychiatric consultation with Dr. Jesus regarding psychotropic medication management. He will be prescribed Medrol 4 mg p.o. daily, Keppra 500 mg p.o. b.i.d., thiamine 100 mg p.o. daily, Seroquel 25 mg p.o. b.i.d. and 25 mg at bedtime, Nicoderm 14 mg every 24 hours smoking patch, multivitamin 1 tablet daily, Zestril 20 mg p.o. b.i.d., Ativan 2 mg IV every 6 hours p.r.n. agitation, folic acid 1 mg p.o. daily, and Pepcid 20 mg p.o. daily. He will be placed on fall precautions, seizure precautions, and will have a one-to-one sitter for his safety. I will call a palliative care consultation regarding possible DNR/DNI. He will have physical therapy for ambulation safety and will be started on D5/0.45 saline at 125 mL/hour with repeat basic metabolic panels ordered for the next 2 days. This case will be referred to case management regarding appropriate placement, possibly to hospice given his multiple comorbidities, and overall prognosis remains poor. Greater than 75 minutes was spent in the care management, review of labs, orders, x-rays and outlining of medical therapy and discussion of this patient with psychiatry, palliative care, and nursing. All questions were answered. Janna Mendez MD [facility] # [id number] MTDD
[2017-08-12 06:34] LABS: BLOOD UREA NITROGEN 33 mg/dL (7-21); CALCIUM 9.5 mg/dL (8.4-10.5); GFR AFRICAN-AMERICAN > 60; GFR NON-AFRICAN AMERICAN 51
--- NOTE | 2017-08-12 16:14 | CP.PCM.CON ---
History of Present Illness - History of Present Illness History of Present Illness: Chart reviewed and case discussed with nursing The patient is a 66-year-old white male with a history of alcohol use disorder and the dementia and agitation. More recently has been found to have metastatic lung disease going to his brain was such that he is undergoing whole brain irradiation. Upon completing his most recent course of treatment at [facility] he was referred to a hospice but after several days and they could not care for his agitation at this referred him back to [facility]. His baseline status unknown to this examiner, eye. Eat., The level of his dementia, the extent to which alcohol has contributed to that dementia or some combination thereof. In any event he is now back at the hospital and we are mandated to try to treat his disorganized and agitated state. The patient did present as I evaluated appears quite sedate Review of Systems - Psychiatric Psychiatric: As Per HPI, Confusion, Difficulty Concentrating Additional comments: Lethargic Past Patient History - Infectious Disease Hx of Infectious Diseases: None - Tetanus Immunizations Tetanus Immunization: Unknown - Past Social History Smoking Status: Heavy Smoker > 10 Cigarettes Daily - CARDIAC Hx Hypertension: Yes - PULMONARY Hx Respiratory Disorders: Yes (pulmonary nodule) - NEUROLOGICAL Hx Neurological Disorder: Yes Hx Dementia: Yes Hx Dizziness: Yes Other/Comment: brain neoplasm, agitation, hx skull fx - HEENT Hx HEENT Problems: Yes Hx Epistaxis: Yes - RENAL Hx Chronic Kidney Disease: No - ENDOCRINE/METABOLIC Hx Endocrine Disorders: No - HEMATOLOGICAL/ONCOLOGICAL Hx Cancer: Yes (metastatic lung ca to brain) Other/Comment: brain neoplasm - INTEGUMENTARY Hx Dermatological Problems: Yes Other/Comment: multiple bruises to arms and legs, dirty feet, left knee multiple red abrasions, - MUSCULOSKELETAL/RHEUMATOLOGICAL Hx Falls: No - GASTROINTESTINAL Hx Gastrointestinal Disorders: Yes (hemorrhoids) - GENITOURINARY/GYNECOLOGICAL Hx Incontinence: Yes - PSYCHIATRIC Hx Substance Use: No - SURGICAL HISTORY Hx Orthopedic Surgery: Yes (right leg) Other/Comment: hemorrhoids - ANESTHESIA Hx Anesthesia: Yes Hx Anesthesia Reactions: No Hx Malignant Hyperthermia: No Meds Allergies/Adverse Reactions: Allergies Allergy/AdvReac Type Severity Reaction Status Date / Time No Known Allergies Allergy Verified 07/21/17 17:04 - Medications Medications: Current Medications Acetaminophen (Tylenol 325mg Tab) 650 mg PO Q6H PRN PRN Reason: pain or fever Last Admin: 08/12/17 04:52 Dose: 650 mg Famotidine (Pepcid) 20 mg PO HS [facility] Last Admin: 08/11/17 21:46 Dose: Not Given Folic Acid (Folic Acid) 1 mg PO DAILY [facility] Last Admin: 08/12/17 09:36 Dose: 1 mg Dextrose/Sodium Chloride (Dextrose 5%/0.45% Ns 1000 Ml) 1,000 mls @ 125 mls/hr IV .Q8H [facility] Last Admin: 08/12/17 01:05 Dose: 125 mls/hr Levetiracetam (Keppra) 500 mg PO BID [facility] Last Admin: 08/12/17 09:36 Dose: 500 mg Lisinopril (Zestril) 20 mg PO BID [facility] Last Admin: 08/12/17 09:38 Dose: 20 mg Lorazepam (Ativan) 2 mg IVP Q6 PRN; Protocol PRN Reason: Agitation Last Admin: 08/12/17 14:55 Dose: 2 mg Methylprednisolone (Medrol) 4 mg PO DAILY [facility] Stop: 08/16/17 10:00 Last Admin: 08/12/17 09:37 Dose: 4 mg Nicotine (Nicoderm Cq) 1 patch TD DAILY [facility] Last Admin: 08/12/17 09:37 Dose: 1 patch Ondansetron HCl (Zofran Inj) 4 mg IVP Q6H PRN PRN Reason: Nausea/Vomiting Quetiapine Fumarate (Seroquel) 25 mg PO [facility] PRN Reason: Protocol Last Admin: 08/11/17 22:40 Dose: Not Given Quetiapine Fumarate (Seroquel) 25 mg PO QID [facility] PRN Reason: Protocol Thiamine HCl (Vitamin B1 Tab) 100 mg PO DAILY [facility] Last Admin: 08/12/17 09:38 Dose: 100 mg Physical Exam - Psychiatric Exam Psychiatric exam: Agitated, Flat Affect (Agitated and confused earlier. Presently sedate) Results - Vital Signs Recent Vital Signs: Last Vital Signs Temp 98 F 08/11/17 23:16 Pulse 70 08/12/17 09:38 Resp 16 08/11/17 23:16 BP 129/65 08/12/17 09:38 Pulse Ox 99 08/11/17 18:05 - Labs Result Diagrams: 08/11/17 13:27 08/12/17 05:30 Labs: Laboratory Results - last 24 hr 08/12/17 05:30 Sodium 148 Potassium 5.0 Chloride 113 H Carbon Dioxide 23 Anion Gap 17 BUN 33 H Creatinine 1.4 Est GFR ( Amer) > 60 Est GFR (Non-Af Amer) 51 Random Glucose 85 Calcium 9.5
--- NOTE | 2017-08-12 16:38 | CP.PCM.CON ---
History of Present Illness - History of Present Illness History of Present Illness: Palliative consult requested by Dr Rebecca Mendez Goals of care and advance care planning 66 year old male with history of metastatic lung cancer, HTN, alcoholism who was recently treated at [facility] [place] (07/21/17-08/09/17). He was discharged to [facility] but returned the next day (08/11/17)because of behavioral problems/altered mental status. CT of head showed no new acute abnormalities. Labs;WBC 9.5, Hgb. 11.6, P275,NA 148. K 5.5, BUN 40. Creat 1.8L. 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 Social History: Smoker, alcoholic, no drug use. lived independently but was to be permanently placed in [facility] fac[facility]. Family History: Non contributory Advanced Care Planning: The patient does not have an Advanced Directive. His health care proxy is his brother Roberto Godinez. Review of Systems: As per HPI, 12 point review otherwise negative Past Patient History - Infectious Disease Hx of Infectious Diseases: None - Tetanus Immunizations Tetanus Immunization: Unknown - Past Social History Smoking Status: Heavy Smoker > 10 Cigarettes Daily - CARDIAC Hx Hypertension: Yes - PULMONARY Hx Respiratory Disorders: Yes (pulmonary nodule) - NEUROLOGICAL Hx Neurological Disorder: Yes Hx Dementia: Yes Hx Dizziness: Yes Other/Comment: brain neoplasm, agitation, hx skull fx - HEENT Hx HEENT Problems: Yes Hx Epistaxis: Yes - RENAL Hx Chronic Kidney Disease: No - ENDOCRINE/METABOLIC Hx Endocrine Disorders: No - HEMATOLOGICAL/ONCOLOGICAL Hx Cancer: Yes (metastatic lung ca to brain) Other/Comment: brain neoplasm - INTEGUMENTARY Hx Dermatological Problems: Yes Other/Comment: multiple bruises to arms and legs, dirty feet, left knee multiple red abrasions, - MUSCULOSKELETAL/RHEUMATOLOGICAL Hx Falls: No - GASTROINTESTINAL Hx Gastrointestinal Disorders: Yes (hemorrhoids) - GENITOURINARY/GYNECOLOGICAL Hx Incontinence: Yes - PSYCHIATRIC Hx Substance Use: No - SURGICAL HISTORY Hx Orthopedic Surgery: Yes (right leg) Other/Comment: hemorrhoids - ANESTHESIA Hx Anesthesia: Yes Hx Anesthesia Reactions: No Hx Malignant Hyperthermia: No Meds Home Medications: Home Medication List Medication Instructions Recorded Confirmed Type QUEtiapine [SEROquel] 25 mg PO QID 7 Days tab 08/13/17 Rx QUEtiapine [Seroquel] 25 mg PO HS tab 08/13/17 Rx QUEtiapine [Seroquel] 25 mg PO QID tab 08/13/17 Rx Allergies/Adverse Reactions: Allergies Allergy/AdvReac Type Severity Reaction Status Date / Time No Known Allergies Allergy Verified 07/21/17 17:04 - Medications Medications: Current Medications Acetaminophen (Tylenol 325mg Tab) 650 mg PO Q6H PRN PRN Reason: pain or fever Last Admin: 08/12/17 04:52 Dose: 650 mg Famotidine (Pepcid) 20 mg PO HS [facility] Last Admin: 08/11/17 21:46 Dose: Not Given Folic Acid (Folic Acid) 1 mg PO DAILY [facility] Last Admin: 08/12/17 09:36 Dose: 1 mg Dextrose/Sodium Chloride (Dextrose 5%/0.45% Ns 1000 Ml) 1,000 mls @ 125 mls/hr IV .Q8H [facility] Last Admin: 08/12/17 01:05 Dose: 125 mls/hr Levetiracetam (Keppra) 500 mg PO BID [facility] Last Admin: 08/12/17 09:36 Dose: 500 mg Lisinopril (Zestril) 20 mg PO BID [facility] Last Admin: 08/12/17 09:38 Dose: 20 mg Lorazepam (Ativan) 2 mg IVP Q6 PRN; Protocol PRN Reason: Agitation Last Admin: 08/12/17 14:55 Dose: 2 mg Methylprednisolone (Medrol) 4 mg PO DAILY [facility] Stop: 08/16/17 10:00 Last Admin: 08/12/17 09:37 Dose: 4 mg Nicotine (Nicoderm Cq) 1 patch TD DAILY [facility] Last Admin: 08/12/17 09:37 Dose: 1 patch Ondansetron HCl (Zofran Inj) 4 mg IVP Q6H PRN PRN Reason: Nausea/Vomiting Quetiapine Fumarate (Seroquel) 25 mg PO [facility] PRN Reason: Protocol Last Admin: 08/11/17 22:40 Dose: Not Given Quetiapine Fumarate (Seroquel) 25 mg PO QID [facility] PRN Reason: Protocol Thiamine HCl (Vitamin B1 Tab) 100 mg PO DAILY [facility] Last Admin: 08/12/17 09:38 Dose: 100 mg Physical Exam - Constitutional Appears: Chronically Ill - Head Exam Head Exam: NORMOCEPHALIC - Eye Exam Eye Exam: Normal appearance, PERRL - ENT Exam ENT Exam: Mucous Membranes Moist, Normal Oropharynx - Respiratory Exam Respiratory Exam: Decreased Breath Sounds, NORMAL BREATHING PATTERN - GI/Abdominal Exam GI & Abdominal Exam: Normal Bowel Sounds, Soft - Extremities Exam Extremities exam: Positive for: pedal edema, pedal pulses present - Back Exam Back exam: NORMAL INSPECTION - Neurological Exam Neurological exam: Altered - Psychiatric Exam Psychiatric exam: Agitated, Anxious - Skin Skin Exam: Dry, Pallor - Additional Findings Additional findings: Palliative performance scale rating 40 % Results - Vital Signs Recent Vital Signs: Last Vital Signs Temp 98 F 08/11/17 23:16 Pulse 70 08/12/17 09:38 Resp 16 08/11/17 23:16 BP 129/65 08/12/17 09:38 Pulse Ox 99 08/11/17 18:05 - Labs Result Diagrams: 08/11/17 13:27 08/13/17 06:30 Labs: Laboratory Results - last 24 hr 08/12/17 05:30 Sodium 148 Potassium 5.0 Chloride 113 H Carbon Dioxide 23 Anion Gap 17 BUN 33 H Creatinine 1.4 Est GFR ( Amer) > 60 Est GFR (Non-Af Amer) 51 Random Glucose 85 Calcium 9.5 Assessment & Plan - Assessment and Plan (Free Text) Assessment: 66 year old male with history of metastatic lung cancer who is admitted with agitation, confusion,seizure disorder. Patient remains confused, agitated , impulsive. Denies pain I spoke with Roberto SHELL via phone. Updated him of patients condition. Discussed resuscitation status, specifically DNR/DNI. I also spoke with patient' s niece Rosemary regarding this same topic. Benefits and burdens of CPR / intubation explained. Family does not want intubation or CPR, nor do they want artificial feeding. POLST directive e mailed to family for review. POA completed POLST directive, a copy is palced in the chart. Time spent with family in discussion regarding goals of care and advance care planning, 20 minutes Plan: POLST DNR/DNI Agitation: Seroqule 25 mg four times daily shceduedl dosing. Seroquel 25 mh Hs , Ativan 2 mg ans neede prn evry 6 hours.Follow up with psych recommendation. Seizure disorder: Continue Keppra 500 mg twice daily
[2017-08-12 19:50] VITALS: RESP 20
--- NOTE | 2017-08-13 01:06 | PN ---
DATE: 08/12/2017 SUBJECTIVE: This 66-year-old male remains hospitalized on the cardiac olivera. He remains easily agitated and required a one-to-one sitter earlier because of agitation. He was reevaluated by Dr. Jesus from Psychiatry. He has adjusted his medication to include Seroquel 25 mg p.o. four times a day and 25 mg p.o. at nighttime. The patient has metastatic lung cancer to his brain and did complete a series of brain irradiation treatments by Dr. Bravo from [facility]. PHYSICAL EXAMINATION: VITAL SIGNS: At present, his temperature is 98, respirations 16, pulse 70, blood pressure 129/65 with a pulse ox of 99%. library monitor shows normal sinus rhythm. HEENT: Head: Normocephalic, atraumatic. Eyes: No icterus. Ears: Clear. Throat: Noninjected. NECK: Supple. HEART: Regular S1, S2. LUNGS: Clear. ABDOMEN: Soft. EXTREMITIES: No edema. SKIN: Without rash. NEUROLOGICAL: Motor intact. PSYCHOLOGICAL: Disoriented and confused to person, place, and time. Easily agitated. VASCULAR: Legs warm to touch. LABORATORY DATA: White count 9500, hemoglobin 11.6, hematocrit 34.6, platelets 275,000. Sodium 148, K 5, chloride 113, bicarb 23, BUN 33, creatinine 1.4, previously BUN 40 and creatinine 1.8, random blood sugar 85. All liver function testing was normal including bilirubin 0.2, AST 33, ALT 40, and alk phos 109. IMPRESSION: A 66-year-old male with metastatic lung cancer to his brain, chronic dementia, chronic alcoholism with chronic confusional state, agitation, risk for seizure syndrome, history of smoking abuse, anemia of chronic disease, hypertension. PLAN: Plan is to continue Ativan 2 mg IV every 6 hours p.r.n. severe agitation, D5 0.45 saline will continue with a 125 mL per hour, folic acid 1 mg p.o. daily, Keppra 500 mg p.o. b.i.d., Medrol 4 mg p.o. daily, NicoDerm smoking patch 14 mg every 24 hours to his arm, Pepcid 20 mg at bedtime, Seroquel 25 mg p.o. four times a day and 25 mg at bedtime, thiamine 100 mg p.o. daily, Zestril 20 mg p.o. b.i.d., and Zofran 4 mg IV every 6 hours p.r.n. nausea and vomiting. The patient's brother, Roberto, is his power of employment attorney. He has agreed to a DNR/DNI and this has been placed on his chart. The patient will continue on a soft bland diet, fall precautions, seizure precautions, and has been ordered to have physical and occupational therapy for reconditioning and gait training. I have discussed this case in detail with palliative care, nursing, case management, and plans will be remained made for placement once Psychiatry has stabilized his mood and minimized his agitation syndrome. Greater than 35 minutes was spent in the care management, review of labs, orders, x-rays, and discussion of the patient's situation and disposition needs with all of the above. All questions were answered. Janna Mendez MD MTDD
[2017-08-13] MEDS: Dextrose 5%/0.45% NS 1,000 ML IV SCH (02:01)
[2017-08-13 07:32] LABS: BLOOD UREA NITROGEN 24 mg/dL (7-21); CALCIUM 9.5 mg/dL (8.4-10.5); GFR AFRICAN-AMERICAN > 60; GFR NON-AFRICAN AMERICAN 55
[2017-08-13 09:11] VITALS: BP 155/70; PULSE 75; TEMP 98.1; O2SAT 97
--- NOTE | 2017-08-14 12:08 | DS ---
DATE OF EXAM: 08/13/2017. FINAL DIAGNOSES: Metastatic lung cancer to the brain; agitation syndrome, improved; chronic dementia, alcoholic related; acute delirium, improved; anemia of chronic disease; smoking history; chronic hypertension. DISPOSITION: [facility]. The patient remains DNR/DNI. DISCHARGE MEDS: Medrol 4 mg p.o. daily, Keppra 500 mg p.o. b.i.d., thiamine 100 mg p.o. daily, Seroquel 25 mg p.o. four times daily and 25 mg p.o. at bedtime, Nicoderm smoking patch 14 mg every 24 hours daily, multivitamin 1 tablet daily, Zestril 20 mg p.o. b.i.d. and folic acid 1 mg p.o. daily and Pepcid 20 mg p.o. daily. The patient is advised to have fall precautions. SUMMARY: This 66-year-old male was readmitted after becoming agitated and unmanageable at the local rehab to which he was discharge previously. He was readmitted, seen in consultation by Dr. Jesus from Psychiatry, who adjusted his psychotropic medications with good effect and also by nurse, Juanita Galvan from Palliative Care, who was able to secure DNR/DNI from the patient's brother, Roberto, who is his power of copyright clerk. At the time of the patient's discharge, vital signs were temperature 98.1, respirations 20, pulse 75 and blood pressure 155/70 with a pulse ox of 97% on room air. Labs showed white count 9500, hemoglobin 11.6, hematocrit 34.6, platelets 275,000. Sodium 145, K 4.8, chloride 110, bicarb 26, BUN 24, creatinine 1.3, blood sugar 97. All liver function testing was normal including bilirubin 0.2, AST 33, ALT 40 and alk phos 109. The patient was cleared for discharge to subacute rehab. Overall prognosis remains extremely poor. The patient remains alert, but confused to person, place and time and overall prognosis remains extremely poor. Greater than 35 minutes was spent in the care and management, review of labs, orders, x-rays and discussion of this patient's care with nursing and case management. All questions were answered. Janan Mendez MD [facility] # [id number] DAIJA
== END 2017-08-13 16:06 | DRG 54 ==
LOC: ED 12:00 → ERH 15:10 → 3RNO 18:11
PROVIDERS: ADMIT Internal Medicine; ATTEND Internal Medicine
DX: C79.31 Secondary malignant neoplasm of brain (principal); G93.6 Cerebral edema; C34.90 Malignant neoplasm of unspecified part of unspecified bronchus or lung; F03.90 Unspecified dementia, unspecified severity, without behavioral disturbance, psychotic disturbance, mood disturbance, and anxiety; F10.20 Alcohol dependence, uncomplicated; D63.8 Anemia in other chronic diseases classified elsewhere; G40.909 Epilepsy, unspecified, not intractable, without status epilepticus; E87.5 Hyperkalemia; F17.200 Nicotine dependence, unspecified, uncomplicated; I10 Essential (primary) hypertension; Z51.5 Encounter for palliative care; Z66 Do not resuscitate; Z79.899 Other long term (current) drug therapy; Z92.21 Personal history of antineoplastic chemotherapy; Z92.3 Personal history of irradiation; K64.9 Unspecified hemorrhoids